=== PATIENT | male | born 1965 | race Caucasian/White ===

== ENCOUNTER 2016-11-30 18:33 | Inpatient (IN) | payer OTHER, MEDICARE ==
[~2016-11-30] VITALS: Ht 162.6 cm; Wt 97.5 kg
[~2016-11-30 18:33] MED LIST: AMOXIL 875 MG875 MG PO; BACTRIM DS 8001 TAB PO; KEFLEX 250MG C250 MG PO; KEFLEX250 MG PO; PROPRANOLOL HCL40 M1 PO; TOPAMAX100 M1 PO; TOPAMAX200 M1 PO; TOPIRAMATE100 MG PO; TYLENOL TAB 32325 MG PO; [UNRECOGNIZED DRUG - CODE] TOP
--- NOTE | 2016-11-30 19:27 | NUR ---
PT TO ED C/O SHARP LLQ PAIN. PAIN STARTED IN BACK THIS AM AND THEN MOVED TO LLQ. HAS BEEN GETTING WORSE THROUGHOUT THE DAY. +N/V. LAST BM WAS A COUPLE OF DAYS AGO "I HAVEN'T BEEN ABLE TO GO" FEELS BLOATED. TEMP 101.1 IN TRIAGE
[2016-11-30 19:50] LABS: ABSOLUTE BASOPHIL COUNT 0 /CUMM (0.0-0.2); ABSOLUTE EOSINOPHIL COUNT 0 /CUMM (0.0-0.7); ABSOLUTE GRANULOCYTE CT 12.4 /CUMM (1.4-6.5); ABSOLUTE LYMPH COUNT 1.4 /CUMM (1.2-3.4); ABSOLUTE MONOCYTE COUNT 0.9 /CUMM (0.10-0.60); BASOPHIL % 0.2 % (0.0-2.0); EOSINOPHIL % 0 % (0-5); HEMATOCRIT 48.8 % (42-52); MEAN CORPUSCULAR HGB 29.5 PG (27.0-31.0); MEAN CORPUSCULAR HGB CONC 33.4 G/DL (33.0-37.0); MEAN CORPUSCULAR VOLUME 88.5 FL (80.0-94.0); MEAN PLATELET VOLUME 9.1 FL (7.4-10.4); PLATELET COUNT 217 /CUMM (130-400); RBC DISTRIBUTION WIDTH 13.8 % (11.5-14.5); RED BLOOD CELL CT 5.52 /CUMM (4.70-6.10); WHITE BLOOD CELL COUNT 14.7 /CUMM (4.8-10.8)
--- NOTE | 2016-11-30 19:50 | NUR ---
LAB DRAWN AND SENT, LAV,SST,BLUE TOP
[2016-11-30 19:51] LABS: GRANULOCYTE % 84.2 % (42.2-75.2)
--- NOTE | 2016-11-30 20:21 | ED GI/GU/ABDOMINAL COMPLAINT ---
History of Present Illness General Chief Complaint: Abdominal Pain/Flank Pain Stated Complaint: ABD PAIN, VOMITING SINCE THIS AM PER PT Source: patient, family Exam Limitations: no limitations Allergies Coded Allergies: No Known Allergies (11/30/16) Reconcile Medications Oxybutynin Chloride (Oxybutynin Chloride ER) 15 MG TAB.ER.24 1 TAB PO DAILY OVERACTIVE BLADDER (Reported) Propranolol HCl 40 MG TABLET 1 TAB PO DAILY MIGRAINES (Reported) Rivaroxaban (Xarelto) 20 MG TABLET 1 TAB PO DAILY BLOOD CLOT (Reported) with food Topiramate (Topamax) 200 MG TABLET 1 TAB PO QPM SEIZURES (Reported) Topiramate (Topamax) 100 MG TABLET 1 TAB PO DAILY SEIZURES (Reported) Triage Note: PT TO ED C/O SHARP LLQ PAIN. PAIN STARTED IN BACK THIS AM AND THEN MOVED TO LLQ. HAS BEEN GETTING WORSE THROUGHOUT THE DAY. +N/V. LAST BM WAS A COUPLE OF DAYS AGO "I HAVEN'T BEEN ABLE TO GO" FEELS BLOATED. TEMP 101.1 IN TRIAGE Triage Nurses Notes Reviewed? yes HPI: 51-year-old male with left lower quadrant and left flank pain and left-sided low back pain that started this morning, sharp and severe getting worse associated with chills and fever decreased appetite. Mild intermittent nausea. No vomiting. Patient feels totally needs to have a bowel movement but cannot. No history of same. No urinary symptoms of frequency urgency or burning. No history of kidney stones. (ADEOLA GUNDERSON,KATHY) Vital Signs & Intake/Output Vital Signs & Intake/Output Vital Signs Date Time Temp Pulse Resp B/P Pulse O2 O2 Flow FiO2 Ox Delivery Rate 12/01 2255 97.4 98 18 143/93 96 Room Air 12/01 2026 Room Air Room Air 12/01 1348 98.6 85 18 128/90 96 Room Air 12/01 0825 99.6 80 20 146/86 98 Room Air ED Intake and Output 12/02 0000 12/01 1200 Intake Total 2190 300 Output Total 1100 600 Balance 1090 -300 Intake, IV 1300 300 Intake, Oral 890 Output, Urine 1100 600 Patient 215 lb Weight Past History Travel History Traveled to [place] past 21 day No Medical History Any Pertinent Medical History? 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 No (KATHY CONNOLLY) Review of Systems Review of Systems Constitutional: Reports: see HPI. EENTM: Reports: no symptoms. Respiratory: Reports: no symptoms. Cardiovascular: Reports: no symptoms. GI: Reports: see HPI. Genitourinary: Reports: no symptoms. Musculoskeletal: Reports: no symptoms. Skin: Reports: no symptoms. Neurological/Psychological: Reports: no symptoms. Hematologic/Endocrine: Reports: no symptoms. Immunologic/Allergic: Reports: no symptoms. All Other Systems: Reviewed and Negative (KATHY CONNOLLY) Physical Exam Physical Exam Respiratory: normal breath sounds, chest non-tender, no respiratory distress Cardiovascular: regular rate/rhythm Gastrointestinal: normal bowel sounds, soft, TENDERNESS IN LEFT LOWER QUADRANT MODERATE TO SEVERE Comments: Well-developed well-nourished no apparent distress. HEENT: Atraumatic, Neck: Supple, no lymphadenopathy Back: Nontender, no CVA tenderness Respiratory: No respiratory distress Extremities: No edema, full range of motion Neuro: Alert and oriented x3 Psych: Mood affect normal, normal memory normal judgment. Skin: Warm and dry, no rash on exposed skin (KATHY CONNOLLY) Core Measures ACS in differential dx? No Severe Sepsis Present: No Septic Shock Present: No (ABDIFATAH ZURITA) Progress Initial ED EKG: none Hand-Off Endorsed To: ABDIFATAH ZURITA Endorsed Time: 2250 Pending: CT Comments: tx with toradol 30mg iv. ivf. will ct abd/pelvis, eval for diverticulitis. (KATHY CONNOLLY) Differential Diagnosis: appendicitis, cholecystitis, diverticulitis, testicular torsion, ureterolithiasis, urinary retention, urethritis, UTI/pyelo Plan of Care: Orders Procedure Date/time Status PARTIAL THROMBOPLASTIN TIME 04/01 1030 Active CBC WITHOUT DIFFERENTIAL 12/02 0600 Active BASIC ELECTROLYTES PLUS BUN&CR 12/02 06 Active Heparin Drip- AFIB/FLUTTER/PE/ 12/02 0352 Active PARTIAL THROMBOPLASTIN TIME 12/02 0230 Complete Regular Diet 12/01 L Active RT: Evaluation 12/01 2025 Active Weight 12/01 1947 Complete MISSING MEDICATION FORM 12/01 1411 Active Seizure Precautions 12/01 1356 Active Precautions 12/01 1356 Active Vital Signs 12/01 1347 Active Teach/Educate 12/01 1347 Active Pain Treatment and Response 12/01 1347 Active Nutritional Intake, Monitor 12/01 1347 Active Isolation 12/01 134 Active Intake & Output 12/01 134 Active Patient Care Conference 12/01 1347 Active Activity/Ambulation 12/01 1347 Active PATHOLOGY SPECIMEN 12/01 0953 Complete Pathway - chart 12/01 0837 Active THERAPIST ORDERS 12/01 UNK Complete Misc Message 12/01 UNK Active Change service to 12/01 UNK Active Lab Add-on Test 12/01 UNK Active PHARMACY COMMUNICATION FORM 12/01 UNK Active MISSING MEDICATION FORM 12/01 UNK Active CULTURE,URINE 11/30 2319 Active Current Medications Sig/Carolyne Start time Last Medication Dose Stop Time Status Admin Heparin Sodium 5,000 UNIT BOLUS ONE 12/02 0330 CAN (Porcine) 12/02 0700 (Heparin Bolus) Heparin Sodium 25,000 UNIT Q24H 12/01 1330 CAN (Porcine) (Heparin) Sodium Chloride 500 ML Propranolol HCl 40 MG DAILY 12/01 1000 AC (Inderal 40 MG Tablet) Topiramate 100 MG DAILY 12/01 1000 AC (Topamax) Acetaminophen 650 MG Q6P PRN 12/01 0845 AC (Tylenol) Morphine Sulfate 2 MG Q4P PRN 12/01 0845 AC (Morphine) Laboratory Tests 12/02/16 0630: Sodium Pending, Potassium Pending, Chloride Pending, Carbon Dioxide Pending, Anion Gap Pending, BUN Pending, Creatinine Pending, BUN/Creatinine Ratio Pending , CBC w Diff Pending, WBC Pending, RBC Pending, Hgb Pending, Hct Pending, MCV Pending, MCH Pending, RDW Pending, Plt Count Pending, MPV Pending, PUBS MCHC Pending 12/02/16 0600: APTT Cancelled 12/02/16 0245: APTT 46 H 12/01/16 2040: Lactic Acid 2.0 12/01/16 1509: Ref Lab Test Result Pending Microbiology 12/01 1850 URINE ROUT: Urine Culture - RECD Diagnostic Imaging: Viewed by Me: CT Scan. Discussed w/RAD: CT Scan. Radiology Impression: SERVICE DATE: 11/30/16 EXAM TYPE: CAT - CT ABD & PELVIS W IV CONTRAST EXAMINATION: CT ABDOMEN AND PELVIS WITH CONTRAST CLINICAL INFORMATION: Left lower quadrant pain. Fever. COMPARISON: None. TECHNIQUE: Contiguous axial thin section helical images of the abdomen and pelvis were performed following the administration of 95 mL of intravenous Optiray 320. The data set was reformatted in the coronal and sagittal planes and reviewed on an independent workstation. DLP: 703 mGy-cm. FINDINGS: There is mild dependent bibasilar atelectasis. The visualized lung bases are otherwise clear. The visualized portions of the heart are unremarkable. There is a small hiatal hernia. The liver is of normal size and attenuation without intrahepatic biliary ductal dilation. There are a few subcentimeter low-attenuation lesions within the liver. These are too small to fully characterize. There are 2 small calculi within the gallbladder lumen. There is no wall thickening or discernible pericholecystic fluid. The spleen, pancreas, adrenal glands are unremarkable. There is a catheter within the abdomen and entering through the right anterior abdomen. No discontinuity is identified along the course of the catheter. A normal right kidney is identified. There is equivocal delay of the nephrogram on the left. There is left perinephric and proximal periureteral stranding. There is left grade 2 hydroureteronephrosis secondary to an obstructive distal left ureteral calculus measuring 4 mm. In addition, there is a 1 mm calculus at the left UVJ. There is no abdominal free fluid. There is neither mesenteric nor retroperitoneal lymphadenopathy. There is sigmoid diverticulosis without evidence of diverticulitis. Otherwise, unremarkable unopacified loops of small and large bowel are identified. In normal appendix is identified. There is no pelvic free fluid. The urinary bladder is unremarkable. There is neither pelvic nor inguinal lymphadenopathy. Bone windows: Neither concerning sclerotic nor lytic bone lesions are identified. There is an enostosis within the right iliac bone. There are bilateral L5 pars defects. There is no significant spondylolisthesis. IMPRESSION: Obstructive 4 mm distal left ureteral calculus with resultant grade 2 hydroureteronephrosis with left perinephric stranding. Diverticulosis without evidence of diverticulitis. 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 Small hiatal hernia. DICTATED BY: ZEN MYLES MD DATE/TIME DICTATED:11/30/162240 (ABDIFATAH ZURITA) Departure Departure Condition: Stable Referrals: RAIZA MANNING,EMMA Nails (PCP/Family) Departure Forms: Customer Survey General Discharge Information (KATHY CONNOLLY) Departure Disposition: STILL A PATIENT Clinical Impression Primary Impression: Pyelonephritis Secondary Impressions: Hydronephrosis with obstructing calculus Admission Note Spoke With: JEFF KISER MD Documentation of Exam: Documentation of any treatments & extenuating circumstances including Concerns Regarding Discharge (functional status, medication knowledge or non-compliance, living conditions, etc.) that warrant an admission rather than observation: Patient will require IV fluids. IV antibiotics. Patient will require a stent tomorrow. Patient is high risk. Patient would do poorly as an outpatient. Patient could potentially become unstable at home. (ABDIFATAH ZURITA) PA/SOLE LEVELING MACHINE OPERATOR Co-Sign Statement Statement: ED Attending supervision documentation- x I saw and evaluated the patient. I have also reviewed all the pertinent lab results and diagnostic results. I agree with the findings and the plan of care as documented in the PA's/SOLE LEVELING MACHINE OPERATOR's documentation. [] I have reviewed the ED Record and agree with the PA's/SOLE LEVELING MACHINE OPERATOR's documentation. [] Additions or exceptions (if any) to the PAs/SOLE LEVELING MACHINE OPERATOR's note and plan are summarized below: [] (BAIRON MANNING,ELTON) Primary Impression: Pyelonephritis Secondary Impressions: Hydronephrosis with obstructing calculus Admission Note Spoke With: JEFF KISER MD Documentation of Exam: Documentation of any treatments & extenuating circumstances including Concerns Regarding Discharge (functional status, medication knowledge or non-compliance, living conditions, etc.) that warrant an admission rather than observation: Patient will require IV fluids. IV antibiotics. Patient will require a stent tomorrow. Patient is high risk. Patient would do poorly as an outpatient. Patient could potentially become unstable at home. (ABDIFATAH ZURITA)
--- NOTE | 2016-11-30 21:49 | NUR ---
VERY POOR VENOUS ACCESS. MULTIPLE ATTEMPTS BY MULTIPLE NURSES TO ESTABLISH. PT MEDICATED WITH TORADOL IM PER [facility]
--- NOTE | 2016-11-30 22:51 | CT SCAN REPORT ---
EXAMINATION: CT ABDOMEN AND PELVIS WITH CONTRAST CLINICAL INFORMATION: Left lower quadrant pain. Fever. COMPARISON: None. TECHNIQUE: Contiguous axial thin section helical images of the abdomen and pelvis were performed following the administration of 95 mL of intravenous Optiray 320. The data set was reformatted in the coronal and sagittal planes and reviewed on an independent workstation. DLP: 703 mGy-cm. FINDINGS: There is mild dependent bibasilar atelectasis. The visualized lung bases are otherwise clear. The visualized portions of the heart are unremarkable. There is a small hiatal hernia. The liver is of normal size and attenuation without intrahepatic biliary ductal dilation. There are a few subcentimeter low-attenuation lesions within the liver. These are too small to fully characterize. There are 2 small calculi within the gallbladder lumen. There is no wall thickening or discernible pericholecystic fluid. The spleen, pancreas, adrenal glands are unremarkable. There is a catheter within the abdomen and entering through the right anterior abdomen. No discontinuity is identified along the course of the catheter. A normal right kidney is identified. There is equivocal delay of the nephrogram on the left. There is left perinephric and proximal periureteral stranding. There is left grade 2 hydroureteronephrosis secondary to an obstructive distal left ureteral calculus measuring 4 mm. In addition, there is a 1 mm calculus at the left UVJ. There is no abdominal free fluid. There is neither mesenteric nor retroperitoneal lymphadenopathy. There is sigmoid diverticulosis without evidence of diverticulitis. Otherwise, unremarkable unopacified loops of small and large bowel are identified. In normal appendix is identified. There is no pelvic free fluid. The urinary bladder is unremarkable. There is neither pelvic nor inguinal lymphadenopathy. Bone windows: Neither concerning sclerotic nor lytic bone lesions are identified. There is an enostosis within the right iliac bone. There are bilateral L5 pars defects. There is no significant spondylolisthesis. IMPRESSION: Obstructive 4 mm distal left ureteral calculus with resultant grade 2 hydroureteronephrosis with left perinephric stranding. Diverticulosis without evidence of diverticulitis. 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 Small hiatal hernia.
--- NOTE | 2016-11-30 23:00 | NUR ---
MEDICATED WITH MORPHINE PER [facility] AND INFORMED AGAIN OF NEED FOR URINE SAMPLE WHEN ABLE TO PROVIDE. NS IVF BOLUS CONTINUES TO RUN WIDE OPEN
--- NOTE | 2016-11-30 23:22 | NUR ---
PT NORMOTENSIVE, HR 98-104 ON CM AND TEMP 99.1 AT THIS TIME. REPORTS IMPROVEMENT OF SYMPTOMS WITH MORPHINE. 100ML CONCENTRATED YELLOW URINE OBTAINED AND TRIO SENT TO LAB. NEPTALI MCCRACKEN TO ROOM TO DISCUSS TEST RESULTS
--- NOTE | 2016-12-01 01:01 | NUR ---
ABDIFATAH IZQUIERDO W/DR HCRISTIAN. PT TO BE ADMITTED.
--- NOTE | 2016-12-01 01:30 | NUR ---
PLACED ON HOSP BED AT THIS TIME--NO AVAILABLE GM BEDS, SO PT WILL REMAIN HERE IN ERR.
--- NOTE | 2016-12-01 02:11 | NUR ---
HOUSE STAFF AT BEDSIDE
[2016-12-01] MEDS ORDERED: XARELTO20 M2 PO (02:12)
[2016-12-01] MEDS ORDERED: OXYBUTYNIN CHLO15 M1 PO (02:15)
--- NOTE | 2016-12-01 03:19 | History & Physical ---
KELL WOOTEN 12/01/16 0318: General Information and HPI MD Statement: I have seen and personally examined RUDY KWONG and documented this H&P. The patient is a 51 year old M who presented with a patient stated chief complaint of fever, chills, nausea, vomiting and low back pain. Source of Information: patient Exam Limitations: no limitations History of Present Illness: This is a 51-year-old male with past medical history significant for migrainous headache, seizures, hydrocephalus evp operations shunt, cellulitis left lower extremity, blood clots on xaralto, overactive bladder on oxybutynin presented to the emergency department this evening with chief complaint of fever, chills, nausea, vomiting and low back pain for 1 day. Patient does report sudden onset of fever associated with chills. He has low back pain, 10 out of 10 pain, sharp and achy, radiating to left flank, associated with nausea and vomiting. He does report 4 episodes of nonbloody vomitus this afternoon. He denies any frequency, urgency. However he reports burning sensation on urination. Off note patient has history of overactive bladder who takes oxybutynin. He denies any blood in urine. He denies any history of kidney stones in the past. Patient also reports abdominal discomfort and pain in left lower part of the abdomen, abdominal distention. He also reports loss of appetite for a while. Also reports constipation. Denies any blood in stool. Denies any alternate bowel habits. Denies any sick contacts or travel history. Patient follows Dr. Saavedra the vascular surgeon for blood clots and he takes it xaralto 20 mg daily. He denies any chest pain, racing of heart, shortness of breath, cough, lower extremity swelling or pain, headache, weakness, sensory changes, numbness or tingling sensation, gait or vision changes. 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 self Services at Home: None Smoking Status: Never Smoked ETOH Use: denies use Illicit Drug Use: denies illicit drug use Functional Ability ADLs Independent: dressing, eating, toileting, bathing. Ambulation: cane IADLs Independent: shopping, housework, finances, food prep, telephone, medication admin. Needs Assist: transportation. Review of Systems Review of Systems Constitutional: Reports: chills, diaphoresis, fever. Denies: malaise, weakness, unexplained weight loss. EENTM: Denies: no symptoms. Cardiovascular: Denies: chest pain, edema, orthopena, palpitations, peripheral edema, syncope. Respiratory: Denies: cough, hemoptysis, orthopnea, short of breath, sputum production, stridor, wheezing. GI: Reports: abdominal pain, bloating, constipation, distention, nausea, vomiting. Denies: bloody stool, steatorrhea. Genitourinary: Reports: dysuria, pain. Denies: discharge, frequency, hematuria, nocturia, urgency. Musculoskeletal: Denies: back pain, joint pain. Skin: Denies: no symptoms. Neurological/Psychological: Denies: anxiety, ataxia, confusion, depressed, emotional problems, headache, numbness, tingling, tremors. Exam & Diagnostic Data Last 24 Hrs of Vital Signs/I&O Vital Signs Date Time Temp Pulse Resp B/P Pulse O2 O2 Flow FiO2 Ox Delivery Rate 11/30 2320 99.1 98 18 150/79 97 Room Air 11/30 2249 97 Room Air 11/30 2106 100.3 90 18 149/88 96 Room Air 11/30 1923 101.1 103 18 149/84 96 Room Air Intake & Output 12/01 0800 12/01 0000 11/30 1600 Intake Total 1000 Output Total 200 100 Balance -200 900 Intake, IV 1000 Output, Urine 200 100 Patient 104.326 kg Weight Physical Exam General Appearance Alert, Oriented X3, Cooperative, No Acute Distress Skin No Rashes, No Breakdown HEENT Atraumatic, PERRLA, EOMI, Mucous Membr. moist/pink Neck Supple, No JVD, No thryomegaly Lymphatic Axillary nl, Cervical nl Cardiovascular Regular Rate, Normal S1, Normal S2, No Murmurs Lungs Clear to Auscultation, Normal Air Movement Abdomen Normal Bowel Sounds, Soft, No Hepatospenomegaly, No Masses, left flank tenderness Neurological Normal Speech, Strength at 5/5 X4 Ext, Normal Tone, Sensation Intact, Cranial Nerves 3-12 NL, Reflexes 2+ Extremities No Clubbing, No Cyanosis, No Edema, Normal Pulses, No Tenderness/ Swelling Vascular Normal Pulses, Pulses Symmetrical Last 24 Hrs of Labs/August: Laboratory Tests 11/30/162354: Lactic Acid 0.9 11/30/169: Urinalysis LIGHT H, Urine Color YEL, Urine Clarity CLEAR, Urine pH 6.0, Ur Specific [place] 1.010, Urine Protein NEG, Urine Ketones TRACE H, Urine Nitrite NEG, Urine Bilirubin NEG, Urine Urobilinogen 0.2, Ur Leukocyte Esterase NEG, Ur Microscopic SEDIMENT EXAMINED, Urine RBC 3-5, Urine WBC RARE, Ur Epithelial Cells RARE, Urine Mucus FEW, Urine Hemoglobin TRACE-INTACT H, Urine Glucose NEG 11/30/16 1944: Anion Gap 13, Estimated GFR 59 L, BUN/Creatinine Ratio 17.7, Glucose 144 H, Calcium 9.5, Total Bilirubin 0.7, AST 24, ALT 39, Alkaline Phosphatase 86, Total Protein 7.6, Albumin 4.5, Globulin 3.1, Albumin/Globulin Ratio 1.5, Amylase 32, Lipase 52, CBC w Diff NO MAN DIFF REQ, RBC 5.52, MCV 88.5, MCH 29.5, RDW 13.8, MPV 9.1, Gran % 84.2 H, Lymphocytes % 9.5 L, Monocytes % 6.1, Eosinophils % 0, Basophils % 0.2, Absolute Granulocytes 12.4 H, Absolute Lymphocytes 1.4, Absolute Monocytes 0.9 H, Absolute Eosinophils 0, Absolute Basophils 0, PUBS MCHC 33.4 Microbiology 12/01 0128 URINE ROUT: Urine Culture - ORD 12/01 0000 BLOOD: Blood Culture - RECD 11/30 2354 BLOOD: Blood Culture - RECD Assessment/Plan Assessment: This is a 51-year-old male with past medical history significant for migrainous headache, seizures, hydrocephalus evp operations shunt, cellulitis left lower extremity, blood clots on xaralto, overactive bladder on oxybutynin presented to the emergency department this evening with chief complaint of fever, chills, nausea, vomiting and low back pain for 1 day. Vitals on admission febrile 101.1, tachycardic 103, respiratory rate 18, blood pressure 149/88, saturating at 96% on room air. On examination patient has left CVA tenderness. Labs leukocytosis with neutrophilia, H&H normal, platelet count normal. Urine analysis-normal. Creatinine 1.3. Lactic acid 0.9 CAT scan abdomen- Obstructive 4 mm distal left ureteral calculus with resultant grade hydroureteronephrosis with left perinephric stranding. Problem list 1. Acute pyelonephritis 2. Sepsis of urologic origin 3. Acute kidney injury 4. Hydronephrosis with obstructive calculus 5. Migrainous headache 6. Seizures 7. Lower extremity blood clots 8. Overactive bladder Acute pyelonephritis Patient presented with sudden onset fever, chills, low back pain and left flank pain, associated with nausea and vomiting, burning sensation on urination. No past history significant for stones. Laboratory findings suggestive of leukocytosis with neutrophilia, urine analysis was normal, creatinine raised to 1.3. CAT scan suggestive of obstructive 4 mm left ureteral calculus and grade 2 hydroureteral nephrosis. * Patient admitted to general medical floor for further management of acute pyelonephritis and nephrolithiasis. * Monitor vitals every shift. * Maintain oxygen saturation above 90%. * Monitor closely for any worsening fever, tachycardia, hypotension, worsening pain. * IV fluids, received 2 boluses of normal saline packs in the emergency room. * Pain medication if necessary * zofran if necessary for vomiting * IV ceftriaxone * Urine culture and sensitivities * Blood culture * Urology consult * Monitor CBC in the morning sepsis of urologic origin Patient presented with fever 101.1, tachycardia and found to be having leukocytosis. Source of infection-urine. CAT scan abdomen suggestive of left ureteral stone. * Monitor vitals closely * Maintain oxygen saturation above 90% * Monitor for fever, hypotension, tachycardia. * Maintenance IV fluids Hydronephrosis with obstructive calculus CAT scan abdomen suggestive of left-sided ureteral calculus and grade 2 hydroureteronephrosis. * Urologist on board * Possible stent placement tomorrow * Nothing by mouth Acute kidney injury Creatinine 1.3 on admission Getting IV fluids We'll monitor kidney function tests in the morning Migrainous headache Patient takes propranolol 40 daily Continue home medication Seizures Patient takes topiramate 100 mg daily and 200 mg at bedtime Continue home medication Hydrocephalus Status post NETWORK CONTRACT MANAGER shunt Lower extremity blood clot Patient takes xeralto 20mg daily xaralto on hold for now for anticipated procedure Stool guaic Was negative for blood Started on heparin drip Denies any calf tenderness, pain or swelling lower extremities Denies any chest pain Full code DVT prophylaxis-heparin drip Mild to moderate pain pathway Nothing by mouth-anticipated urologic procedure . As Ranked By This Provider Problem List: 1. Hydronephrosis with obstructing calculus 2. Pyelonephritis 3. DVT prophylaxis 4. Full code status 5. Hydrocephalus 6. Seizures 7. Cellulitis Core Measures/Miscellaneous Acute Coronary Syndrome ACS Diagnosis: No Cerebrovascular Accident CVA/TIA Diagnosis: No Congestive Heart Failure CHF Diagnosis: No Venous Thromboembolism VTE Risk Factors: Age > 40, Previous VTE No [facility] VTE prophylaxis d/t: No contraindications No VTE Pharm Prophylaxis d/t: No contraindications VTE Diagnosis: No VTE Type: NONE VTE Confirmed by (Test): NONE Severe Sepsis Severe Sepsis Present: No Septic Shock Septic Shock Present: No Miscellaneous Documentation Attending Case Discussed With: JEFF KISER MD Primary Care Physician: EMMA EASTMAN MD Patient sees these Specialists vascular surgeon Level of Patient Care: General Medicine ALYCHRIS 12/01/16 0322: General Information and HPI Allergies/Medications Home Med list Oxybutynin Chloride (Oxybutynin Chloride ER) 15 MG TAB.ER.24 1 TAB PO DAILY OVERACTIVE BLADDER (Reported) Propranolol HCl 40 MG TABLET 1 TAB PO DAILY MIGRAINES (Reported) Rivaroxaban (Xarelto) 20 MG TABLET 1 TAB PO DAILY BLOOD CLOT (Reported) with food Topiramate (Topamax) 200 MG TABLET 1 TAB PO QPM SEIZURES (Reported) Topiramate (Topamax) 100 MG TABLET 1 TAB PO DAILY SEIZURES (Reported) Resident Review Statement Resident Statement: examined this patient, discussed with technical internship, agreed with technical internship, reviewed EMR data (avail), reviewed images Other Findings: This is a 51-year-old gentleman with past medical history significant for hydrocephalus status post NETWORK CONTRACT MANAGER shunt, seizure, migraine, overactive bladder, DVT on Xarelto who presents to the ED with low back pain, fever, nausea for 1 day. According to the patient, he has sharp left lower quadrant abdominal pain along with back pain since this morning. He also had fever chills along with nausea. He also reports dysuria without any frequency or hematuria. Please see above for more details. Vital signs on admission: Temperature 101.5, pulse rate 103, respiratory rate 18 , blood pressure 149/84, oxygen saturation 96% on room air. Pertinent physical exam at the time of admission: AAO 3, NAD. HEENT: H NCAT, PERRLA, EOMI, moist mucous membrane, normal pharynx. Neck: Supple, no JVD, no LAD. CV: RRR, no murmur. Lungs: CTA BL. Abdomen: Normal bowel sounds, soft, distended, NT. CVA tenderness present bilaterally. Extremities: No edema, normal pulse, no calf tenderness. Neurology: Normal speech, cranial nerves III- 12 intact, normal reflexes, normal range of motion and strength. Sensation intact. Skin: Warm with normal capillary refill. Pertinent lab data on admission: Leukocytosis to 14.7 with granulocytosis. Creatinine 1.3, GFR 59, glucose 144, lactic acid 0.9. UA positive for trace hematuria. Imaging on admission: CT abdomen/pelvis:Obstructive 4 mm distal left ureteral calculus with resultant grade 2 hydroureteronephrosis with left perinephric stranding.Diverticulosis without evidence of diverticulitis. 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 Small hiatal hernia. Problem list/plan: #Sepsis of urological origin: Likely secondary to complicated UTI with pyelonephritis, obstructing stone with hydronephrosis. Will obtain blood culture 2 and urine culture. Patient has received 2 L of bolus normal saline in the ED will start the patient on maintenance fluids. Lactic acid negative. Will start the patient on IV ceftriaxone. Urology consult in the morning. Will keep the patient nothing by mouth in case he needs any procedure in the morning. #History of DVT on Xarelto: Patient takes his Xarelto daily around 6 AM. Given the patient may require urological procedure, will discontinue Xarelto and start the patient on IV heparin. Will obtain lower extremity Doppler. 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 #DVT prophylaxis: Being addressed by IV heparin. #Patient is full code. JEFF KISER 12/01/16 0445: Attending MD Review Statement Attending Statement Attending MD Statement: examined this patient, discuss w/resident/PA/SPINDLE MAKER, agreed w/resident/PA/SPINDLE MAKER, reviewed EMR data (avail), reviewed images, amended to note Attending Assessment/Plan: CC: Sharp left lower quadrant pain PMH: Hydrocephalus S/P NETWORK CONTRACT MANAGER shunt, seizure, migraine, DVT diagnosed one and half year back on Xeralto Patient came to ER with sharp left lower quadrant pain, back pain, which started as low back this morning, then radiated, sharp, severe, 10/10, associated with fever, chills, nausea and vomiting. He observed blood in urine but denies any frequency and urgency in urination patient has overactive bladder. Vitals: T max 101.3, pulse 103 at presentation, RR 18, blood pressure 149/84, saturating well on room air. On exam: A O 3, cooperative, no acute distress, neck supple, , warm to touch, no JVD, no lymphadenopathy, mucosa moist, no focal neurological deficit, no dependent edema, no obvious skin rashes or inflammation CVS: S1-S2, RRR. RS: Clear to auscultate bilaterally. Abdomen: Soft, NT, ND, bowel sounds present. Peripheral pulses perfusion normal. Labs: WBC 14.7, neutrophils 84%, bicarbonate 20, BUN 23, creatinine 1.3, glucose 144, lactate 0.9, LFT unremarkable. UA trace ketones only. CT abdomen pelvis with IV contrast: 1. Obstructive 4 mm distal left ureteral calculus with resultant grade 2 hydroureteronephrosis with left perinephric stranding. 2. Diverticulosis without evidence of diverticulitis. 3. 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 4. Small hiatal hernia. A and P #1 sepsis secondary to complicated UTI with pyelonephritis and hydronephrosis with obstructing stone. Urine culture, blood culture, aggressive hydration with 2 L NS bolus followed by 150 mL per hour, lactate 0.9, continue ceftriaxone IV. Urology consult in a.m. nothing by mouth until seen by urologist. #2 history of DVT patient currently on , last tube dose on 11/30/2016 at around 6 AM. Patient is supposed to be on prolonged treatment, given that patient will and require urological procedure DC Xalto, start heparin 5 AM, obtain bilateral lower extremity DVT Doppler. Heparin may be transiently stopped for urological procedure then according to procedure can be resumed xeralto or heparin. #3 history of seizure, hydrocephalus, migraine: Continue propranolol and Topamax
--- NOTE | 2016-12-01 04:00 | NUR ---
SLEEPING SHORT PERIODS.
--- NOTE | 2016-12-01 04:47 | Admission Certification ---
Admission Certification Certification Statement - As attending physician, I certify that at the time of - admission, based on clinical presentation, severity of - symptoms, need for further diagnostic testing and - therapeutic interventions, and risk of adverse outcomes - without in-hospital treatment, in my clinical assessment, - this patient requires an acute hospital stay for a minimum - of two nights or longer. I have also considered psychsocial - factors such as support system, advanced age, financial - issues, cognitive issues, and failed out-patient treatments, - past re-admission history, safety of patient, and lack of - compliance as applicable. Specific rationale supporting this admission is: Sepsis with complicated UTI, hydronephrosis with obstructing stone
--- NOTE | 2016-12-01 05:00 | NUR ---
HEPARIN DRIP UP VIA PUMP AT MAX DOSE OF 26ML/HR.
--- NOTE | 2016-12-01 07:02 | NUR ---
OOB TO BR W/ASSISTANCE.
[2016-12-01 07:07] LABS: ABSOLUTE BASOPHIL COUNT 0 /CUMM (0.0-0.2); ABSOLUTE EOSINOPHIL COUNT 0 /CUMM (0.0-0.7); ABSOLUTE GRANULOCYTE CT 7.2 /CUMM (1.4-6.5); ABSOLUTE LYMPH COUNT 1.8 /CUMM (1.2-3.4); ABSOLUTE MONOCYTE COUNT 1.3 /CUMM (0.10-0.60); BASOPHIL % 0.2 % (0.0-2.0); EOSINOPHIL % 0.3 % (0-5); GRANULOCYTE % 69.6 % (42.2-75.2); MEAN CORPUSCULAR HGB 29.5 PG (27.0-31.0); MEAN CORPUSCULAR HGB CONC 33.5 G/DL (33.0-37.0); MEAN CORPUSCULAR VOLUME 88.2 FL (80.0-94.0); MEAN PLATELET VOLUME 9.2 FL (7.4-10.4); PLATELET COUNT 171 /CUMM (130-400); RBC DISTRIBUTION WIDTH 14.3 % (11.5-14.5); RED BLOOD CELL CT 4.79 /CUMM (4.70-6.10); WHITE BLOOD CELL COUNT 10.4 /CUMM (4.8-10.8)
[2016-12-01 07:11] LABS: HEMATOCRIT 42.3 % (42-52)
--- NOTE | 2016-12-01 07:15 | NUR ---
RECEIVED REPORT ON PT AND NOTED RESTING ON STRETCHER AND DENIED ANY COMPLAINTS AT PRESENT. PT IS AWARE HE IS GOING TO OR AND NEEDS TO REMAIN NPO. PT ALSO HAS HEPARIN INFUSING AT 25.9.
--- NOTE | 2016-12-01 07:40 | NUR ---
U/S AT BEDSIDE WITH PT
--- NOTE | 2016-12-01 07:47 | NUR ---
SURGICAL PA CALLED TO INFORM PT WILL BE GOING TO OR EITHER BY 8AM OR 10AM
--- NOTE | 2016-12-01 08:07 | NUR ---
PAIGED SURGICAL NEPTALI TAYLOR TO CONFIRM WHEN TO STOP HEPARIN ON PT AND WAS INFORMED BY NEPTALI MIR THAT SHE IS IN THE OR AND THAT IT IS OK TO STOP THE HEPARIN NOW
--- NOTE | 2016-12-01 08:33 | Cons- Urology ---
General Information and HPI Consulting Request Date of Consult: 12/01/16 Requested By: JEAN-PAUL MANNING,ANDREI Peters Reason for Consult: left obstructing ureteral stone with imminent sepsis Source of Information: patient Exam Limitations: no limitations History of Present Illness: This is a 51-year-old male with past medical history significant for migraine headaches, seizures, hydrocephalus vp [employer] sales [place] shunt, cellulitis of the left lower extremity, blood clots on xeralto, overactive bladder on oxybutynin who presented to the ER with chief complaint of F/C/N/V and LBP for one day. He described the LBP as 10 out of 10 pain, sharp and achy, radiating to left flank, associated with nausea and vomiting. He does report 4 episodes of nonbloody vomitus yesterday afternoon. He also admits to LLQ pain with a loss of appetite and constipation. He denies any frequency, urgency. However he reports burning sensation on urination. He denies any blood in urine. He denies any history of kidney stones in the past. Allergies/Medications Allergies: Coded Allergies: No Known Allergies (11/30/16) Home Med List: Apixaban (Eliquis) 5 MG TABLET 1 TAB PO BID DVT Cephalexin (Keflex) 500 MG CAPSULE 1 CAP PO Q6 UTI Cephalexin (Keflex) 500 MG CAPSULE 1 CAP PO BID UTI Hydromorphone HCl (Dilaudid) 2 MG TABLET 1 TAB PO BIDP PRN PAIN Ondansetron HCl (Zofran) 4 MG TABLET 1 TAB PO Q6-8P PRN NAUSEA Oxybutynin Chloride (Oxybutynin Chloride ER) 15 MG TAB.ER.24 1 TAB PO DAILY OVERACTIVE BLADDER (Reported) Oxycodone HCl 5 MG TABLET 1 TAB PO Q6H PRN PAIN SCALE 7-10 (SEVERE) Propranolol HCl 40 MG TABLET 1 TAB PO DAILY MIGRAINES (Reported) Tamsulosin HCl (Flomax) 0.4 MG CAP.ER.24H 1 CAP PO DAILY KIDNEY STONE Topiramate (Topamax) 200 MG TABLET 1 TAB PO QPM SEIZURES (Reported) Topiramate (Topamax) 100 MG TABLET 1 TAB PO DAILY SEIZURES (Reported) Current Medications: Current Medications Sig/Carolyne Start time Last Medication Dose Route Stop Time Status Admin Ampicillin Sodium/ 0 .STK-MED ONE 03/30 2137 DC Sulbactam Sodium .ROUTE Ampicillin Sodium/ 3,000 MG ONCE ONE 11/30 2030 DC 11/30 Sulbactam Sodium IV 11/30 2058 2230 Sodium Chloride 100 ML Ceftriaxone Sodium 1,000 MG DAILY 12/01 1000 AC IV Heparin Sodium 25,000 UNIT Q24H 12/01 0730 DC (Porcine) IV Sodium Chloride 500 ML Heparin Sodium 25,000 UNIT Q24H 12/01 0500 AC 12/01 (Porcine) IV 0505 Sodium Chloride 500 ML Ketorolac 30 MG ONE ONE 11/30 214 DC 11/30 Tromethamine IM 11/30 2145 2150 Ketorolac 0 .STK-MED ONE 11/30 2136 DC Tromethamine .ROUTE Ketorolac 30 MG ONCE ONE 11/30 2029 CAN Tromethamine IV 11/30 2030 Morphine Sulfate 4 MG ONCE ONE 11/30 2300 DC 11/30 IV 11/30 2300 2304 Morphine Sulfate 0 .STK-MED ONE 11/30 2258 DC .ROUTE Propranolol HCl 40 MG DAILY 12/01 1000 CAN PO Propranolol HCl 40 MG DAILY 12/01 1000 AC PO Sodium Chloride 1,000 ML Q13H 12/01 0315 AC 12/01 IV 0404 Sodium Chloride 1,000 ML BOLUS ONE 11/30 2330 DC 12/01 IV 12/01 0029 0005 Sodium Chloride 1,000 ML BOLUS ONE 11/30 2029 DC 11/30 IV 11/30 2128 2230 Topiramate 100 MG QAM 12/01 1000 CAN PO Topiramate 100 MG DAILY 12/01 1000 AC PO Topiramate 200 MG AT BEDTIME 12/01 0400 AC 12/01 PO 0404 Past History Medical History Blood Transfusion Hx: No Neurological: migraine, seizure, 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 self Services at Home: None Primary Language: Bulgarian Smoking Status: Never Smoked ETOH Use: denies use Illicit Drug Use: denies illicit drug use Living Will? unknown Power of Playground Director/HCP? unknown Functional Ability ADLs Independent: dressing, eating, toileting, bathing. Ambulation: cane IADLs Independent: shopping, housework, finances, food prep, telephone, medication admin. Needs Assist: transportation. Employment History Retired? unknown Review of Systems Review of Systems Constitutional: Reports: chills, fever, malaise, weakness. EENTM: Reports: no symptoms. Cardiovascular: Reports: no symptoms. Respiratory: Reports: no symptoms. GI: Reports: constipation. Genitourinary: Reports: dysuria. Musculoskeletal: Reports: back pain. Skin: Reports: no symptoms. Neurological/Psychological: Reports: no symptoms. Hematologic/Endocrine: Reports: no symptoms. Immunologic/Allergic: Reports: no symptoms. Exam & Diagnostic Data Vital Signs and I&O Vital Signs Date Time Temp Pulse Resp B/P Pulse O2 O2 Flow FiO2 Ox Delivery Rate 12/01 824 99.6 80 20 146/86 98 Room Air 12/01 0542 98.6 95 18 156/95 98 11/30 2320 99.1 98 18 150/79 97 Room Air 11/30 2249 97 Room Air 11/30 2106 100.3 90 18 149/88 96 Room Air 11/30 1923 101.1 103 18 149/84 96 Room Air Intake & Output 12/01 1600 12/01 0800 12/01 0000 11/30 1600 11/30 0800 11/30 0000 Intake Total 300 1000 Output Total 600 100 Balance -300 900 Intake, IV 300 1000 Output, Urine 600 100 Patient 104.326 kg Weight Physical Exam General Appearance: well developed/nourished, alert, awake, anxious Head: atraumatic, normal appearance Eyes: Bilateral: normal appearance. Ears, Nose, Throat: normal ENT inspection Neck: normal inspection Respiratory: normal breath sounds, no respiratory distress Cardiovascular: regular rate/rhythm Gastrointestinal: soft, non-tender Rectal: deferred Back: CVA tenderness (L) Extremities: normal inspection Neurologic/Psych: awake, alert, oriented x 3 Cranial Nerves: normal hearing, normal speech Skin: intact, normal color, warm/dry Reproductive: Normal male genitalia Last 24 Hours of Labs: Laboratory Tests 12/01 11/30 0651 2355 Chemistry Sodium (137 - 145 mmol/L) 138 Potassium (3.5 - 5.1 mmol/L) 3.6 Chloride (98 - 107 mmol/L) 110 H Carbon Dioxide (22 - 30 mmol/L) 22 Anion Gap (5 - 16) 6 BUN (9 - 20 mg/dL) 23 H Creatinine (0.7 - 1.2 mg/dL) 1.4 H Estimated GFR (>60 ml/min) 54 L BUN/Creatinine Ratio (7 - 25 %) 16.4 Lactic Acid (0.7 - 2.1 mmol/L) 0.9 Hematology CBC w Diff NO MAN DIFF REQ WBC (4.8 - 10.8 /CUMM) 10.4 RBC (4.70 - 6.10 /CUMM) 4.79 Hgb (14.0 - 18.0 G/DL) 14.2 Hct (42 - 52 %) 42.3 MCV (80.0 - 94.0 FL) 88.2 MCH (27.0 - 31.0 PG) 29.5 RDW (11.5 - 14.5 %) 14.3 Plt Count (130 - 400 /CUMM) 171 MPV (7.4 - 10.4 FL) 9.2 Gran % (42.2 - 75.2 %) 69.6 Lymphocytes % (20.5 - 51.1 %) 17.7 L Monocytes % (1.7 - 9.3 %) 12.2 H Eosinophils % (0 - 5 %) 0.3 Basophils % (0.0 - 2.0 %) 0.2 Absolute Granulocytes (1.4 - 6.5 /CUMM) 7.2 H Absolute Lymphocytes (1.2 - 3.4 /CUMM) 1.8 Absolute Monocytes (0.10 - 0.60 /CUMM) 1.3 H Absolute Eosinophils (0.0 - 0.7 /CUMM) 0 Absolute Basophils (0.0 - 0.2 /CUMM) 0 PUBS MCHC (33.0 - 37.0 G/DL) 33.5 11/30 11/30 2319 1944 Chemistry Sodium (137 - 145 mmol/L) 137 Potassium (3.5 - 5.1 mmol/L) 4.0 Chloride (98 - 107 mmol/L) 103 Carbon Dioxide (22 - 30 mmol/L) 20 L Anion Gap (5 - 16) 13 BUN (9 - 20 mg/dL) 23 H Creatinine (0.7 - 1.2 mg/dL) 1.3 H Estimated GFR (>60 ml/min) 59 L BUN/Creatinine Ratio (7 - 25 %) 17.7 Glucose (65 - 99 mg/dL) 144 H Calcium (8.4 - 10.2 mg/dL) 9.5 Total Bilirubin (0.2 - 1.3 mg/dL) 0.7 AST (17 - 59 U/L) 24 ALT (21 - 72 U/L) 39 Alkaline Phosphatase (< 127 U/L) 86 Total Protein (6.3 - 8.2 g/dL) 7.6 Albumin (3.5 - 5.0 g/dL) 4.5 Globulin (1.9 - 4.2 gm/dL) 3.1 Albumin/Globulin Ratio (1.1 - 2.2 %) 1.5 Amylase (30 - 110 U/L) 32 Lipase (23 - 300 U/L) 52 Hematology CBC w Diff NO MAN DIFF REQ WBC (4.8 - 10.8 /CUMM) 14.7 H RBC (4.70 - 6.10 /CUMM) 5.52 Hgb (14.0 - 18.0 G/DL) 16.3 Hct (42 - 52 %) 48.8 MCV (80.0 - 94.0 FL) 88.5 MCH (27.0 - 31.0 PG) 29.5 RDW (11.5 - 14.5 %) 13.8 Plt Count (130 - 400 /CUMM) 217 MPV (7.4 - 10.4 FL) 9.1 Gran % (42.2 - 75.2 %) 84.2 H Lymphocytes % (20.5 - 51.1 %) 9.5 L Monocytes % (1.7 - 9.3 %) 6.1 Eosinophils % (0 - 5 %) 0 Basophils % (0.0 - 2.0 %) 0.2 Absolute Granulocytes (1.4 - 6.5 /CUMM) 12.4 H Absolute Lymphocytes (1.2 - 3.4 /CUMM) 1.4 Absolute Monocytes (0.10 - 0.60 /CUMM) 0.9 H Absolute Eosinophils (0.0 - 0.7 /CUMM) 0 Absolute Basophils (0.0 - 0.2 /CUMM) 0 PUBS MCHC (33.0 - 37.0 G/DL) 33.4 Urines Urinalysis LIGHT H Urine Color (YEL,AMB,STR) YEL Urine Clarity (CLEAR) CLEAR Urine pH (5.0 - 8.0) 6.0 Ur Specific [place] (1.001 - 1.035) 1.010 Urine Protein (NEG,<30 MG/DL) NEG Urine Ketones (NEG) TRACE H Urine Nitrite (NEG) NEG Urine Bilirubin (NEG) NEG Urine Urobilinogen (0.1 - 1.0 EU/dl) 0.2 Ur Leukocyte Esterase (NEG) NEG Ur Microscopic SEDIMENT EXAMINED Urine RBC (0 - 5 /HPF) 3-5 Urine WBC (0 - 2 /HPF) RARE Ur Epithelial Cells (NONE,FEW) RARE Urine Mucus (FEW,NONE) FEW Urine Hemoglobin (NEG) TRACE-INTACT H Urine Glucose (N MG/DL) NEG Imaging Results: CT scan with 4mm distal ureteral stone and 1mm UVJ stone with perinephric stranding. Assessment/Plan Assessment/Plan Pt has an obstructing ureteral stone. Pt to go to OR for ureteral stent and stone laser lithotripsy. Consult Acknowledgment - Thank you for your consult request.
--- NOTE | 2016-12-01 08:35 | ULTRASOUND REPORT ---
EXAMINATION: US TRIPLEX LOWER EXTREMITY, BILATERAL CLINICAL INFORMATION: This is a 51-year-old male with history of left lower extremity deep vein thrombosis. On anticoagulation with Xarelto. COMPARISON: Comparison is made to a left lower extremity venous duplex dated 02/24/2015 which was reported as normal. Comparison is made to a left lower extremity venous duplex dated 08/09/2013 which was also normal. TECHNIQUE: Color-flow triplex imaging with spectral analysis and compression Doppler were performed on the bilateral lower extremities. FINDINGS: Respiratory variation, normal compression and augmented flow are noted throughout the bilateral lower extremities. The visualized common femoral vein, superficial femoral vein, profunda femoral vein, popliteal vein and midcalf peroneal venous segments show no evidence of deep venous thrombosis. However, there is partially occlusive thrombus within the proximal and mid posterior tibial vein below the knee. This is likely new when compared to the previous examinations. This may be partially recanalized chronic thrombus. There is no Ledezma's cyst. IMPRESSION: 1. There is partially recanalized deep vein thrombosis involving the proximal and mid posterior tibial vein. This is new when compared to the most recent previous study dated 02/24/2015. 2. There is no deep vein thrombosis above the knee.
--- NOTE | 2016-12-01 08:35 | NUR ---
RUDY KWONG P Nurse Note by: JOSÉ MIGUEL GIL I agree with the SEBD TEACHER findings/evaluation of this patient's condition. Entered by: JOSÉ MIGUEL GIL Date: 12/01/16 Time: 0803
--- NOTE | 2016-12-01 08:38 | Operative Report ---
Operative/Inv Procedure Report Surgery Date: 12/01/16 Name of Procedure: left ureteroscopy with laser lithotripsy and stent placement Pre-Operative Diagnosis: left ureteral obstructing stones 4mm and 1mm Post-Operative Diagnosis: same Estimated Blood Loss: samm Surgeon/Heel Sorter: Angela Gonzalez Anesthesia: laryngeal mask airway Implants: ureteral stentn silicone Coloplast 6x22cm Drains: 6x22cm stent Specimens: stones Complications: none Condition: stable Operative Indication: obstructing ureteral stones with septic condition imminent Operative/Procedure Note Note: Operative dictation on patient Darnell Quiroz. He was admitted to [facility] ER yesterday with complaints of left back pain radiating to the left lower quadrant with nausea vomiting fever and chills. He had a fever of [address] scan findings that showed perinephric stranding as well as distal ureteral obstructing stone in the left ureter with hydronephrosis. He was admitted and started on Unasyn IV antibiotics and not kept nothing by mouth for the operating room. Patient was identified in the holding side in the holding area and consented for left ureteroscopy with laser lithotripsy pop stent placement and possible retrograde pyelogram. The risks benefits and alternatives of the surgery were given and all questions were answered. Patient was brought to the operating room placed on the operating table in supine position. Once timeout was performed IV Cipro antibiotics were given and LMA anesthesia was the placed. Patient was prepped and draped in the standard sterile fashion of the dorsal lithotomy position. Cystoscopy was performed the bladder was globally inspected. The globe bladder was without any lesions masses or trabeculation. Ureteral orifices were easily identified. The left ureteral orifice was cannulated with a sensor guidewire using a 5 Yoruba open- ended catheter. Semirigid ureteroscope was then passed up the ureter however there was difficulty once we got to the distal UVJ area. The semirigid scope was not able to be passed. As result a accident ureteral access sheath 25 cm was then placed however it was not long enough and did not reach the ureter. The cystoscope was then placed back into the bladder and to sensor wire was then placed up into the renal pelvis to allow for safety wires well. The flexible ureteroscope was then paced past at one of the ureter the ureteral access wires. The stone was easily visualized at this point. 200 laser fiber was then used to blast the stone into smaller pieces. The 0 tip basket was then used to grasp the larger one and a few the smaller ones followed suit and was removed. Stone was sent to pathology for stone analysis. The patient is on anticoagulation and so there was some bleeding from the ureter. The remaining safety wire was then used to place a 6 x 22 silicone wire. It did accordion a bit but it did reach into the renal pelvis and was seen to be in good position. The 0.038 wire was too large and so had to be switched to a 0.035 so the silicone wire was placed into the renal pelvis. Once it was done the wire was removed and the stent was seen to be in good position. The bladder was emptied. Patient tolerated the procedure well. Findings: ureteral stones in the distal ureter. No extravasation Discharge Disposition: PACU
--- NOTE | 2016-12-01 08:38 | Acceptance Note - Resident/Int ---
RERE MANNING,LUIZ 12/01/16 0823: Subjective Background: Patient was seen and examined in ER bed 6. He c/o mild-mod Lt. sided abdominal / flank pain after pain medications. He denies any fever/chills. His nausea was decreased. He is now off IV heparin anticipating surgical procedure this morning. Review of Systems Constitutional: Denies: chills, fever, weakness. EENTM: Reports: no symptoms. Cardiovascular: Denies: chest pain, orthopena, peripheral edema. Respiratory: Denies: cough, short of breath, sputum production, wheezing. Gastrointestinal: Reports: abdominal pain, nausea. Denies: diarrhea, vomiting. Genitourinary: Reports: no symptoms. Musculoskeletal: Reports: back pain. Skin: Reports: no symptoms. Neurological/Psychological: Reports: no symptoms. Hematologic/Endocrine: Reports: no symptoms. Immunologic/Allergic: Reports: no symptoms. Objective Last 24 Hrs of Vital Signs/I&O Vital Signs Date Time Temp Pulse Resp B/P Pulse O2 O2 Flow FiO2 Ox Delivery Rate 12/01 0542 98.6 95 18 156/95 98 11/30 2320 99.1 98 18 150/79 97 Room Air 11/30 2249 97 Room Air 11/30 2106 100.3 90 18 149/88 96 Room Air 11/30 1923 101.1 103 18 149/84 96 Room Air Intake & Output 12/01 1600 12/01 0800 12/01 0000 Intake Total 300 1000 Output Total 600 100 Balance -300 900 Intake, IV 300 1000 Output, Urine 600 100 Patient 230 lb Weight Physical Exam General Appearance: Alert, Oriented X3, Cooperative, Mild Distress Skin: No Significant Lesion HEENT: Atraumatic, PERRLA, EOMI, Rt. eye nystagmus s/p DREDGE RUNNER shunt Neck: Supple, No JVD, No thryomegaly, No LAD Lymphatic: Cervical nl Cardiovascular: Regular Rate, Normal S1, Normal S2, No Murmurs Lungs: Clear to Auscultation, Normal Air Movement Abdomen: Normal Bowel Sounds, Soft, LUQ mild tenderness Neurological: Normal Speech, Strength at 5/5 X4 Ext, Normal Tone, Sensation Intact, strabismus, nystagmus with underlying hydrocephalus s/p DREDGE RUNNER shunt Extremities: No Cyanosis, No Edema, Normal Pulses, No Tenderness/Swelling Vascular: Normal Pulses, Pulses Symmetrical Current Medications: Current Medications Sig/Carolyne Start time Last Medication Dose Route Stop Time Status Admin Ampicillin Sodium/ 0 .STK-MED ONE 11/30 2136 DC Sulbactam Sodium .ROUTE Ampicillin Sodium/ 3,000 MG ONCE ONE 11/30 2029 DC 11/30 Sulbactam Sodium IV 11/30 2058 2230 Sodium Chloride 100 ML Ceftriaxone Sodium 1,000 MG DAILY 12/01 1000 AC IV Heparin Sodium 25,000 UNIT Q24H 12/01 0730 DC (Porcine) IV Sodium Chloride 500 ML Heparin Sodium 25,000 UNIT Q24H 12/01 0500 AC 12/01 (Porcine) IV 0505 Sodium Chloride 500 ML Ketorolac 30 MG ONE ONE 11/30 2144 DC 11/30 Tromethamine IM 11/30 Ketorolac 0 .STK-MED ONE 11/30 2136 DC Tromethamine .ROUTE Ketorolac 30 MG ONCE ONE 11/30 2029 CAN Tromethamine IV 11/30 2030 Morphine Sulfate 4 MG ONCE ONE 11/30 2299 DC 11/30 IV 11/30 2300 2304 Morphine Sulfate 0 .STK-MED ONE 11/30 2257 DC .ROUTE Propranolol HCl 40 MG DAILY 12/01 1000 CAN PO Propranolol HCl 40 MG DAILY 12/01 1000 AC PO Sodium Chloride 1,000 ML Q13H 12/01 0315 AC 12/01 IV 0404 Sodium Chloride 1,000 ML BOLUS ONE 11/30 2330 DC 12/01 IV 12/01 0029 0005 Sodium Chloride 1,000 ML BOLUS ONE 11/30 2029 DC 11/30 IV 11/30 2128 2230 Topiramate 100 MG QAM 12/01 1000 CAN PO Topiramate 100 MG DAILY 12/01 1000 AC PO Topiramate 200 MG AT BEDTIME 12/01 0400 AC 12/01 PO 0404 Last 24 Hrs of Lab/August Results Last 24 Hrs of Labs/Mics: Laboratory Tests 12/01/16 0651: Anion Gap 6, Estimated GFR 54 L, BUN/Creatinine Ratio 16.4, CBC w Diff NO MAN DIFF REQ, RBC 4.79, MCV 88.2, MCH 29.5, RDW 14.3, MPV 9.2, Gran % 69.6, Lymphocytes % 17.7 L, Monocytes % 12.2 H, Eosinophils % 0.3, Basophils % 0.2, Absolute Granulocytes 7.2 H, Absolute Lymphocytes 1.8, Absolute Monocytes 1.3 H, Absolute Eosinophils 0, Absolute Basophils 0, PUBS MCHC 33.5 11/30/16 2355: Lactic Acid 0.9 11/30/16 2319: Urinalysis LIGHT H, Urine Color YEL, Urine Clarity CLEAR, Urine pH 6.0, Ur Specific [place] 1.010, Urine Protein NEG, Urine Ketones TRACE H, Urine Nitrite NEG, Urine Bilirubin NEG, Urine Urobilinogen 0.2, Ur Leukocyte Esterase NEG, Ur Microscopic SEDIMENT EXAMINED, Urine RBC 3-5, Urine WBC RARE, Ur Epithelial Cells RARE, Urine Mucus FEW, Urine Hemoglobin TRACE-INTACT H, Urine Glucose NEG 11/30/16 1944: Anion Gap 13, Estimated GFR 59 L, BUN/Creatinine Ratio 17.7, Glucose 144 H, Calcium 9.5, Total Bilirubin 0.7, AST 24, ALT 39, Alkaline Phosphatase 86, Total Protein 7.6, Albumin 4.5, Globulin 3.1, Albumin/Globulin Ratio 1.5, Amylase 32, Lipase 52, CBC w Diff NO MAN DIFF REQ, RBC 5.52, MCV 88.5, MCH 29.5, RDW 13.8, MPV 9.1, Gran % 84.2 H, Lymphocytes % 9.5 L, Monocytes % 6.1, Eosinophils % 0, Basophils % 0.2, Absolute Granulocytes 12.4 H, Absolute Lymphocytes 1.4, Absolute Monocytes 0.9 H, Absolute Eosinophils 0, Absolute Basophils 0, PUBS MCHC 33.4 Microbiology 12/01 0128 URINE ROUT: Urine Culture - COLB 12/01 0000 BLOOD: Blood Culture - RECD 11/30 2354 BLOOD: Blood Culture - RECD Lines/Diet/Fluids Lines: peripheral lines Assessment/Plan Assessment: 51-year-old gentleman with pmh of hydrocephalus s/p DREDGE RUNNER shunt, seizure, migraine, overactive bladder, DVT on Xarelto who presents to the ED with low back pain, fever, nausea, dysuria for 1 day. Patient was admitted to [facility] floor for following problem lists. 1. Sepsis of urological origin: complicated UTI with pyelonephritis, Lt. ureter obstructing stone with hydronephrosis. Will follow blood / urine culture. Lactic acid negative. He was given IV unasyn in ED, will continue IV ceftriaxone. Urology procedure (stent) by Dr. Gonzalez is scheduled this morning. Will follow pt after the procedure 2. FELICIA: secondary to urinary obstruction. Cr 1.4 (baseline 0.9-1.1). Continue gentle hydration and follow after procedure 3. History of DVT on Xarelto: Unprovoked DVT about 1.5 years ago. Patient follows a mixer helper taking Xarelto daily around 6 AM. Xarelto was discontinued and and the patient on IV heparin. Will follow lower extremity Doppler. 4. Hx of seizure/hydrocephalus/migraine : c/w propranolol and Topamax. DVT prophylaxis: on IV heparin. Full code Problem List: 1. Sepsis 2. Hydronephrosis with obstructing calculus 3. Hydrocephalus 4. Seizures Pain Ratin Pain Location: Lt. sided abdomen/flank pain Pain Goal: Pain 4 or less Pain Plan: tyrenol, oxycodoe, IV morphine Tomorrow's Labs & Rationales: CBC after procedure, IV heparin BEP for FELICIA DVT/Prophylaxis: pharmacological Discharge Plan Stable for Discharge? No ANDREI JEONG MD 12/01/16 1413: Attending MD Review Statement Attending Statement Attending MD Statement: examined this patient, discuss w/resident/PA/PLAYGROUND SUPERVISOR, agreed w/resident/PA/PLAYGROUND SUPERVISOR, reviewed EMR data (avail), discussed with nursing, discussed with case mgmt, reviewed images Attending Assessment/Plan: This is a fairly complex 51-year-old male with a past medical history of hydrocephalus with DREDGE RUNNER shunt, seizures, DVT on Xarelto was here with sepsis in the setting of an obstructive uropathy. He was taken to the OR and a lithotripsy and stent was done for an obstructing calculi. He was febrile to 101 on admission, interestingly his UA was not very impressive and the urine culture is still pending. We have him on IV ceftriaxone. He was in FELICIA and we are hydrating him for now. The ultrasound shows this DVT and the question is whether this is old or new and if this is in fact fairly new then he would be a Xarelto failure versus if this is old. We are going to get more records from the PCP and we are going to talk to radiology to find out if this is an old or new clot. Meanwhile given the lithotripsy and the stent we are going to do IV heparin. We confirmed with Dr. Gonzalez from urology who said we can do the IV heparin but we need to watch closely for bleeding because he might bleed anyway given the procedure done.
--- NOTE | 2016-12-01 11:10 | RADIOLOGY REPORT ---
EXAMINATION: XR ABDOMEN CLINICAL INDICATION: Left ureteric calculus with left-sided obstructive uropathy. Laser lithotripsy. Retrograde left ureteroscopy with stent insertion in the operating room. COMPARISON: CT abdomen and pelvis of 11/30/2016. TECHNIQUE: Fluoroscopic assistance was provided to Dr. Gonzalez for urologic procedure in the operating room. A total of 7 spot fluoroscopic images are submitted. KVP: 104 MAS: 3.6 FINDINGS: First 3 images demonstrate opacification of the portions of the left ureter. Subsequent images demonstrate a guidewire coursing through the ureter into the left renal pelvis. Last 2 images demonstrate placement of a double-J left ureteric stent. TOTAL FLUOROSCOPY TIME: 25 seconds IMPRESSION: Intraoperative fluoroscopic assistance was provided for retroverted left ureteroscopy and stent placement as described above. Please refer to Dr. Gonzalez's notes for further procedural details.
[2016-12-01 13:48] VITALS: BP 128/90
--- NOTE | 2016-12-01 15:18 | Event Note ---
Event Note Event Note: I spoke with Dr. Pearce (PCP), and Dr. Camacho (vascular surgery) regarding chronic DVT. Dr. Camacho has been following the patient about 1.5 years, and the patient developed multiple DVTs. He has high risk of recurrent thrombosis, and he's been taking xarelto. The last lower Ext US from outpt office on 11/10/16 showed chronic thrombosis on Lt. proximal peroneal vein. Today's US in [place] showed partially recanalized deep vein thrombosis involving the proximal and mid posterior tibial vein (Lt.) dictated by Dr. Kiko Hassan. I left a message on his office ([phone]) regarding the US finding whether it is new or old thrombosis. I'm waiting for his call. In the mean time, patient started on IV heparin after the Lt. lithotripsy & stent. We'll monitor CBC, ptt with IV heparin. It is anticipated that he could bleed after the procedure. I also spoke with Dr. Gonzalez regarding gustafson catheter. He doesn't have a gustafson post procedure. He doesn't need continuous bladder irrigation at this point. Will monitor the amount / severity of hematuria. Will decide whether pt needs to be on a different agent (eliquis) or same dose xarelto tomorrow monitoring bleeding while in IV heparin. This was discussed with Dr. Milligan, attending and the patient. Polly Macias PGY 4 IM/PM
[2016-12-01 22:55] VITALS: BP 143/93
--- NOTE | 2016-12-01 23:42 | NUR ---
ALERT AND ORIENTED X 3. VITAL SIGNS STABLE. DENIES CHEST PAIN. + PULSES NO DISCOMFORT NOTED. HEPARIN DRIP RUNNING. WILL CONTINUE TO MONITOR
[2016-12-02 03:23] LABS: PTT 46 SEC (25-37)
[2016-12-02 07:08] VITALS: BP 138/84
--- NOTE | 2016-12-02 07:25 | PN- Housestaff ---
See Addendum Subjective Follow-up For: Sepsis Urinary obstruction Chronic DVT Complaints: no complaints Subjective: Patient doesn' have any pain after Lt. lithotripsy & stent placement. No fever/chills. He had mod amount of hematuria filling bowl after procedure while on IV heparin. No dysuria. Review of Systems Constitutional: Denies: chills, malaise, weakness. EENTM: Reports: no symptoms. Cardiovascular: Denies: chest pain, palpitations, peripheral edema. Respiratory: Reports: no symptoms. Gastrointestinal: Denies: abdominal pain, nausea, vomiting. Genitourinary: Reports: hematuria. Denies: dysuria, pain. Musculoskeletal: Reports: no symptoms. Skin: Reports: no symptoms. Neurological/Psychological: Reports: pre-existing deficit. Hematologic/Endocrine: Reports: other. Immunologic/Allergic: Reports: no symptoms. Objective Last 24 Hrs of Vital Signs/I&O Vital Signs Date Time Temp Pulse Resp B/P Pulse O2 O2 Flow FiO2 Ox Delivery Rate 12/02 0708 98.8 75 18 138/84 97 Room Air 12/01 2255 97.4 98 18 143/93 96 Room Air 12/01 2027 Room Air Room Air 12/01 1348 98.6 85 18 128/90 96 Room Air 12/01 0825 99.6 80 20 146/86 98 Room Air Intake & Output 12/02 0800 12/02 0000 12/01 1600 Intake Total 659 777 1275 Output Total 400 500 600 Balance -164 150 940 Intake, IV 116 1300 Intake, Oral 120 650 240 Output, Urine 400 500 600 Patient 215 lb 230 lb Weight Physical Exam General Appearance: Alert, Oriented X3, Cooperative, No Acute Distress Skin: No Rashes, No Breakdown, No Significant Lesion HEENT: Atraumatic, PERRLA, strabismus with underlying hydrocephalus Neck: Supple, No JVD, No LAD Lymphatic: Cervical nl Cardiovascular: Regular Rate, Normal S1, Normal S2, No Murmurs Lungs: Clear to Auscultation, Normal Air Movement Abdomen: Normal Bowel Sounds, Soft, No Tenderness Neurological: Normal Speech, Strength at 5/5 X4 Ext, Normal Tone, Sensation Intact Extremities: No Edema, Normal Pulses, No Tenderness/Swelling Vascular: Normal Pulses, Pulses Symmetrical Current Medications: Current Medications Sig/Carolyne Start time Last Medication Dose Route Stop Time Status Admin Acetaminophen 1,000 MG .STK-MED ONE 12/01 1014 DC IV 12/01 1015 Acetaminophen 650 MG Q6P PRN 12/01 0845 AC PO Ceftriaxone Sodium 1,000 MG DAILY 12/01 1000 AC 12/02 IV 0817 Heparin Sodium 5,000 UNIT BOLUS ONE 12/02 0330 CAN (Porcine) IV 12/02 0700 Heparin Sodium 3,900 UNIT BOLUS ONE 12/02 0330 DC 12/02 (Porcine) IV 12/02 0331 0358 Heparin Sodium 25,000 UNIT Q24H 12/01 1345 AC 12/01 (Porcine) IV 2027 Sodium Chloride 500 ML Heparin Sodium 25,000 UNIT Q24H 12/01 1330 CAN (Porcine) IV Sodium Chloride 500 ML Heparin Sodium 25,000 UNIT Q24H 12/01 0500 DC 12/01 (Porcine) IV 0505 Sodium Chloride 500 ML Morphine Sulfate 2 MG Q4P PRN 12/01 0845 AC IV Oxybutynin Chloride 5 MG TID 12/01 1600 AC 12/02 PO 0818 Oxycodone HCl 5 MG Q6H PRN 12/01 0845 AC 12/02 PO 0634 Propranolol HCl 40 MG DAILY 12/01 1000 AC 12/02 PO 0818 Sodium Chloride 1,000 ML Q13H 12/01 0315 DC 12/01 IV 0404 Topiramate 100 MG DAILY 12/01 1000 AC 12/02 PO 0818 Topiramate 200 MG AT BEDTIME 12/01 0400 AC 12/01 PO 2227 Last 24 Hrs of Lab/August Results Last 24 Hrs of Labs/Mics: Laboratory Tests 12/02/16 0906: APTT Pending 12/02/16 0630: Anion Gap 8, Estimated GFR > 60, BUN/Creatinine Ratio 17.8, CBC w Diff NO MAN DIFF REQ, RBC 4.60 L, MCV 88.9, MCH 29.7, RDW 14.4, MPV 9.6, Gran % 57.7, Lymphocytes % 29.5, Monocytes % 10.1 H, Eosinophils % 2.4, Basophils % 0.3, Absolute Granulocytes 5.9, Absolute Lymphocytes 3.0, Absolute Monocytes 1.0 H, Absolute Eosinophils 0.2, Absolute Basophils 0, PUBS MCHC 33.4 12/02/16 0600: APTT Cancelled 12/02/16 0245: APTT 46 H 12/01/160: Lactic Acid 2.0 12/01/16 1509: Ref Lab Test Result Pending Microbiology 12/01 185 URINE ROUT: Urine Culture - RECD Lines/Diet/Fluids Lines: peripheral lines Assessment/Plan Assessment: 51-year-old gentleman with pmh of hydrocephalus s/p 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 Patient was admitted to [facility] floor for following problem lists. 1. Sepsis of urological origin: resolved after Lt.sided lithotripsy & ureter stent placeemnt 1DA by Dr. Gonzalez. V/S stable, WBC 10.3, Patient has hematuria s/ p procedure while on IV heparin for anticoagualtion. Hb/Hct stable. Will follow blood / urine culture. Continue IV ceftriaxone. 2. FELICIA: secondary to urinary obstruction, now resolved. Cr was decreased to 0.9. 3. History of DVT on Xarelto: Unprovoked DVT about 1.5 years ago[address] Patient followed Dr. Camacho taking Xarelto daily around 6 AM. Xarelto was discontinued and and the patient was placed on IV heparin. The last lower Ext US from outpt office on 11/10/16 showed chronic thrombosis on Lt. proximal peroneal vein. LE US 1DA showed partially recanalized deep vein thrombosis involving the proximal and mid posterior tibial vein (Lt.) There was concern whether the pt has chronic vs. acute thrombosis. Will wait for Dr. Camacho and discuss options for anticoagulation. 4. Hx of seizure/hydrocephalus/migraine : c/w propranolol and Topamax. DVT prophylaxis: on IV heparin. Full code Pain pathway Problem List: 1. Sepsis 2. Hydronephrosis with obstructing calculus 3. DVT (deep venous thrombosis) Pain Ratin Pain Location: NA Pain Goal: Pain 4 or less Pain Plan: po tyrenol, oxycodone, IV morphine per pain scale Tomorrow's Labs & Rationales: CBC/ptt - IV heparin, hematuria DVT/Prophylaxis: pharmacological Consulting Request: 1 Consulting Specialty: Urology Consulting Physician: Dr. Gonzalez Reason for Consult: Lt. sided hydronephrosis with obstructing stone Consulting Request: 2 Consulting Specialty: Thoracic/Vascular Surgery Consulting Physician: Dr. Camacho Reason for Consult: Chronic DVT on anticoagulation Discharge Plan Stable for Discharge? No
[2016-12-02 08:16] LABS: ABSOLUTE BASOPHIL COUNT 0 /CUMM (0.0-0.2); ABSOLUTE EOSINOPHIL COUNT 0.2 /CUMM (0.0-0.7); ABSOLUTE GRANULOCYTE CT 5.9 /CUMM (1.4-6.5); BASOPHIL % 0.3 % (0.0-2.0); EOSINOPHIL % 2.4 % (0-5); GRANULOCYTE % 57.7 % (42.2-75.2); HEMATOCRIT 40.9 % (42-52); MEAN CORPUSCULAR HGB 29.7 PG (27.0-31.0); MEAN CORPUSCULAR HGB CONC 33.4 G/DL (33.0-37.0); MEAN CORPUSCULAR VOLUME 88.9 FL (80.0-94.0); MEAN PLATELET VOLUME 9.6 FL (7.4-10.4); PLATELET COUNT 167 /CUMM (130-400); RBC DISTRIBUTION WIDTH 14.4 % (11.5-14.5); WHITE BLOOD CELL COUNT 10.3 /CUMM (4.8-10.8)
[2016-12-02 10:13] LABS: PTT 72 SEC (25-37)
--- NOTE | 2016-12-02 11:28 | NUR ---
PT'S URINE IS BRIGHT RED; MD LUIZ JERNIGAN IS AWARE; WILL CONTINUE TO MONITOR.
[2016-12-02 15:33] VITALS: BP 130/80
[2016-12-02 22:12] VITALS: BP 134/84
[2016-12-02 23:18] LABS: PTT 82 SEC (25-37)
[2016-12-03 07:00] VITALS: BP 130/80; BP 156/72
[2016-12-03 08:16] LABS: ABSOLUTE BASOPHIL COUNT 0 /CUMM (0.0-0.2); ABSOLUTE EOSINOPHIL COUNT 0.6 /CUMM (0.0-0.7); ABSOLUTE GRANULOCYTE CT 4.5 /CUMM (1.4-6.5); ABSOLUTE LYMPH COUNT 2.8 /CUMM (1.2-3.4); ABSOLUTE MONOCYTE COUNT 0.9 /CUMM (0.10-0.60); BASOPHIL % 0.5 % (0.0-2.0); EOSINOPHIL % 7.2 % (0-5); GRANULOCYTE % 51.2 % (42.2-75.2); MEAN CORPUSCULAR HGB 29.5 PG (27.0-31.0); MEAN CORPUSCULAR VOLUME 89.5 FL (80.0-94.0); MEAN PLATELET VOLUME 9.8 FL (7.4-10.4); PLATELET COUNT 169 /CUMM (130-400); RBC DISTRIBUTION WIDTH 14.6 % (11.5-14.5); WHITE BLOOD CELL COUNT 8.8 /CUMM (4.8-10.8)
--- NOTE | 2016-12-03 10:31 | PN- Housestaff ---
TA MANNING,RAMIRO 12/03/16 1031: Subjective Follow-up For: Sepsis Urinary obstruction Chronic DVT Complaints: no complaints Subjective: Patient followed up and examined by me today, patient is comfortable, does not offer any complaints, vitals stable overnight, no issues overnight Patient still has hematuria. Review of Systems Constitutional: Reports: no symptoms. Cardiovascular: Reports: no symptoms. Respiratory: Reports: no symptoms. Gastrointestinal: Reports: no symptoms. Genitourinary: Reports: see HPI, hematuria. Denies: dysuria, hesitation, pain. Musculoskeletal: Reports: no symptoms. Skin: Reports: no symptoms. Neurological/Psychological: Reports: no symptoms. Objective Last 24 Hrs of Vital Signs/I&O Vital Signs Date Time Temp Pulse Resp B/P Pulse O2 O2 Flow FiO2 Ox Delivery Rate 12/03 1452 98.8 80 22 130/90 96 Room Air 12/03 0910 66 132/86 12/03 0700 98.8 61 20 130/80 96 Room Air 12/02 2212 97.6 81 22 134/84 98 Room Air Intake & Output 12/03 1600 12/03 0800 12/03 0000 Intake Total 1023.6 310 650 Output Total 8394 765 0087 Balance -326.4 -315 -550 Intake, IV 223.6 10 Intake, Oral 800 300 650 Output, Urine 5798 909 6483 Physical Exam General Appearance: Alert, Oriented X3, Cooperative, No Acute Distress Other Physical Findings: Skin: No Rashes, No Breakdown, No Significant Lesion HEENT: Atraumatic, PERRLA, strabismus with underlying hydrocephalus Neck: Supple, No JVD, No LAD Lymphatic: Cervical nl Cardiovascular: Regular Rate, Normal S1, Normal S2, No Murmurs Lungs: Clear to Auscultation, Normal Air Movement Abdomen: Normal Bowel Sounds, Soft, No Tenderness, CVA nontender b/l Neurological: Normal Speech, Strength at 5/5 X4 Ext, Normal Tone, Sensation Intact Extremities: No Edema, Normal Pulses, No Tenderness/Swelling Vascular: Normal Pulses, Pulses Symmetrical Current Medications: Current Medications Sig/Carolyne Start time Last Medication Dose Route Stop Time Status Admin Acetaminophen 650 MG Q6P PRN 12/01 0845 AC PO Apixaban 5 MG BID 12/03 2200 AC PO Bisacodyl 5 MG ONE ONE 12/03 171 DC 12/03 PO 12/03 1716 1846 Ceftriaxone Sodium 1,000 MG DAILY 12/01 1000 AC 12/03 IV 0910 Heparin Sodium 25,000 UNIT Q24H 12/01 1345 DC 12/03 (Porcine) IV 1054 Sodium Chloride 500 ML Magnesium Hydroxide 30 ML AT BEDTIME 12/03 2200 AC PO Morphine Sulfate 2 MG Q4P PRN 12/01 0845 AC IV Oxybutynin Chloride 5 MG TID 12/01 1600 AC 12/03 PO 1709 Oxycodone HCl 5 MG Q6H PRN 12/01 0845 AC 12/03 PO 1847 Propranolol HCl 40 MG DAILY 12/01 1000 AC 12/03 PO 0910 Senna/Docusate Sodium 1 TAB BID PRN 12/02 2115 AC 12/03 PO 0911 Topiramate 100 MG DAILY 12/01 1000 AC 12/03 PO 0911 Topiramate 200 MG AT BEDTIME 12/01 0400 AC 12/02 PO 2126 Last 24 Hrs of Lab/August Results Last 24 Hrs of Labs/Mics: Laboratory Tests 12/03/16 1700: APTT Cancelled 12/03/16 1025: APTT 96 H 12/03/16 0646: CBC w Diff NO MAN DIFF REQ, RBC 4.70, MCV 89.5, MCH 29.5, RDW 14.6 H, MPV 9.8, Gran % 51.2, Lymphocytes % 31.4, Monocytes % 9.7 H, Eosinophils % 7.2 H, Basophils % 0.5, Absolute Granulocytes 4.5, Absolute Lymphocytes 2.8, Absolute Monocytes 0.9 H, Absolute Eosinophils 0.6, Absolute Basophils 0, PUBS MCHC 33.0 12/02/16 2248: APTT 82 H Assessment/Plan Assessment: 51-year-old gentleman with pmh of hydrocephalus 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 Patient was admitted to [facility] floor for following problem lists. 1. Sepsis of urological origin: resolved after Lt.sided lithotripsy & ureter stent placeemnt by Dr. Gonzalez. V/S stable, WBC 10.3, Patient has hematuria s/p procedure while on IV heparin for anticoagualtion. Hb/Hct stable. Will follow blood / urine culture. So far no growth. Continue IV ceftriaxone. 2. FELICIA: secondary to urinary obstruction, now resolved. Cr was decreased to 0.9. BEP was not ordered today. 3. History of DVT on Xarelto: Unprovoked DVT about 1.5 years ago[address] Patient followed Dr. Camacho taking Xarelto daily around 6 AM. Xarelto was discontinued and and the patient was placed on IV heparin. The last lower Ext US from outpt office on 11/10/16 showed chronic thrombosis on Lt. proximal peroneal vein. LE US done on this admission showed partially recanalized deep vein thrombosis involving the proximal and mid posterior tibial vein (Lt.) There was concern whether the pt has chronic vs. acute thrombosis. Dr. Camacho ( vascular surgeon) was called and anticoagulation option was discussed. Failure of Xarelto was considered and the patient was prescribed with Eliquis from this evening, and IV heparin was safely stopped. His PTT today was 96 at 1025hrs. 4. Hx of seizure/hydrocephalus/migraine : c/w propranolol and Topamax. DVT prophylaxis: on IV heparin. Full code Pain pathway Problem List: 1. Pyelonephritis 2. Hydronephrosis with obstructing calculus 3. DVT (deep venous thrombosis) Pain Ratin Pain Location: - Pain Goal: Remain pain free Pain Plan: prn Tomorrow's Labs & Rationales: CBC, BEP, INR Consulting Request: Consulting Specialty: Thoracic/Vascular Surgery Consulting Physician: Dr. Camacho Reason for Consult: Chronic DVT on anticoagulation ALISA MANNING,AMIR 12/03/16 1303: Attending MD Review Statement Attending Statement Attending MD Statement: examined this patient, discuss w/resident/PA/HYDRO ELECTRIC STATION OPERATOR, agreed w/resident/PA/HYDRO ELECTRIC STATION OPERATOR, reviewed EMR data (avail), discussed with nursing Attending Assessment/Plan: cont bowel regimen. remained stable. rest of the plan as per resident's note
[2016-12-03 10:47] LABS: PTT 96 SEC (25-37)
[2016-12-03 14:52] VITALS: BP 130/90
[2016-12-03 21:44] VITALS: BP 126/88
[2016-12-04 06:40] VITALS: BP 142/86
[2016-12-04 08:15] LABS: ABSOLUTE BASOPHIL COUNT 0 /CUMM (0.0-0.2); ABSOLUTE EOSINOPHIL COUNT 0.5 /CUMM (0.0-0.7); ABSOLUTE GRANULOCYTE CT 4.9 /CUMM (1.4-6.5); ABSOLUTE LYMPH COUNT 2.9 /CUMM (1.2-3.4); ABSOLUTE MONOCYTE COUNT 0.8 /CUMM (0.10-0.60); BASOPHIL % 0.4 % (0.0-2.0); EOSINOPHIL % 5.7 % (0-5); GRANULOCYTE % 53.8 % (42.2-75.2); HEMATOCRIT 46.1 % (42-52); MEAN CORPUSCULAR HGB 29.7 PG (27.0-31.0); MEAN CORPUSCULAR HGB CONC 33.3 G/DL (33.0-37.0); MEAN CORPUSCULAR VOLUME 89.2 FL (80.0-94.0); MEAN PLATELET VOLUME 9.6 FL (7.4-10.4); PLATELET COUNT 189 /CUMM (130-400); RBC DISTRIBUTION WIDTH 14.5 % (11.5-14.5); RED BLOOD CELL CT 5.17 /CUMM (4.70-6.10); WHITE BLOOD CELL COUNT 9.2 /CUMM (4.8-10.8)
[2016-12-04 08:20] LABS: PT 11.9 SEC (9.4-12.5)
--- NOTE | 2016-12-04 08:29 | PN- Housestaff ---
RERE MANNING,LUIZ 12/04/16 0828: Subjective Follow-up For: Sepsis with urologic origin Lt. hydronephrosis wirh obstructing stone Chronic DVT Complaints: Lt. side pain Subjective: Pt was seen and examined at bedside. He c/o Lt. side flank pain 3-10 with pain medication. His urine cleared up but still has bloody streak. His constipation was resolved, now having loose stool. Review of Systems Constitutional: Denies: chills, fever, weakness. EENTM: Reports: no symptoms. Cardiovascular: Denies: chest pain, palpitations, peripheral edema, syncope. Respiratory: Denies: cough, short of breath, sputum production. Gastrointestinal: Reports: diarrhea. Denies: abdominal pain, nausea, vomiting. Genitourinary: Reports: hematuria. Musculoskeletal: Reports: see HPI (Lt. flank pain). Skin: Reports: no symptoms. Neurological/Psychological: Reports: pre-existing deficit (strabismus, hydrocephalus ). Hematologic/Endocrine: Reports: no symptoms. Immunologic/Allergic: Reports: no symptoms. Objective Last 24 Hrs of Vital Signs/I&O Vital Signs Date Time Temp Pulse Resp B/P Pulse O2 O2 Flow FiO2 Ox Delivery Rate 12/04 0913 78 140/82 / 0640 98.6 81 20 142/86 98 Room Air 12/03 2144 98.2 64 20 126/88 97 Room Air 12/03 1452 98.8 80 22 130/90 96 Room Air Intake & Output 12/04 1600 / 0800 04/ 0000 Intake Total 800 Output Total 650 1000 Balance -650 -200 Intake, Oral 800 Number 3 3 Bowel Movements Output, Urine 650 1000 Physical Exam General Appearance: Alert, Oriented X3, Cooperative, No Acute Distress Skin: No Breakdown, No Significant Lesion HEENT: Atraumatic, PERRLA, Mucous Membr. moist/pink, strabismus Neck: Supple, No JVD, No LAD Lymphatic: Cervical nl Cardiovascular: Regular Rate, Normal S1, Normal S2, No Murmurs Lungs: Clear to Auscultation, Normal Air Movement Abdomen: Normal Bowel Sounds, Soft, No Tenderness Neurological: Normal Speech, Strength at 5/5 X4 Ext, Normal Tone, Sensation Intact Extremities: No Edema, Normal Pulses Vascular: Normal Pulses, Pulses Symmetrical Current Medications: Current Medications Sig/Carolyne Start time Last Medication Dose Route Stop Time Status Admin Acetaminophen 650 MG Q6P PRN 12/01 0845 DCD PO Apixaban 5 MG BID 12/03 2200 DCD 12/04 PO 0912 Bisacodyl 5 MG ONE ONE 12/03 1715 DC 12/03 PO 12/03 1716 1846 Ceftriaxone Sodium 1,000 MG DAILY 12/01 1000 DCD 12/04 IV 0913 Heparin Sodium 25,000 UNIT Q24H 12/01 1345 DC 12/03 (Porcine) IV 1054 Sodium Chloride 500 ML Magnesium Hydroxide 30 ML AT BEDTIME 12/03 220 DCD PO Morphine Sulfate 2 MG Q4P PRN 12/01 0845 DCD IV Oxybutynin Chloride 5 MG TID 12/01 1600 DCD 12/04 PO 0912 Oxycodone HCl 5 MG Q6H PRN 12/01 0845 DCD 12/04 PO 0547 Propranolol HCl 40 MG DAILY 12/01 1000 DCD 12/04 PO 0913 Senna/Docusate Sodium 1 TAB BID PRN 12/02 2115 DCD 12/03 PO 0911 Topiramate 100 MG DAILY 12/01 1000 DCD 12/04 PO 0912 Topiramate 200 MG AT BEDTIME 12/01 0400 DCD 12/03 PO 2209 Last 24 Hrs of Lab/August Results Last 24 Hrs of Labs/Mics: Laboratory Tests 12/04/16 0630: Anion Gap 7, Estimated GFR > 60, BUN/Creatinine Ratio 16.0, PT 11.9, INR 1.13, CBC w Diff NO MAN DIFF REQ, RBC 5.17, MCV 89.2, MCH 29.7, RDW 14.5, MPV 9.6, Gran % 53.8, Lymphocytes % 31.4, Monocytes % 8.7, Eosinophils % 5.7 H, Basophils % 0.4, Absolute Granulocytes 4.9, Absolute Lymphocytes 2.9, Absolute Monocytes 0.8 H, Absolute Eosinophils 0.5, Absolute Basophils 0, PUBS MCHC 33.3 12/03/16 1700: APTT Cancelled Lines/Diet/Fluids Lines: peripheral lines Assessment/Plan Assessment: 51-year-old gentleman with pmh of 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 Patient was admitted to [facility] floor for following problem lists. 1. Sepsis of urological origin: resolved after Lt.sided lithotripsy & ureter stent placement by Dr. Gonzalez. V/S stable, WBC 9.2, hematuria was decreased after discontinuing IV heparin. Blood / urine cultures remain negative. Will discharge pt with po keflex for total 14 day course. 2. FELICIA: secondary to urinary obstruction, now resolved. Cr was decreased to 1.0 3. History of DVT on Xarelto: Unprovoked DVT about 1.5 years ago[address] Patient followed Dr. Camacho taking Xarelto daily around 6 AM. Xarelto was discontinued and and the patient was placed on IV heparin. The last lower Ext US from outpt office on 11/10/16 showed chronic thrombosis on Lt. proximal peroneal vein. LE US done on this admission showed partially recanalized deep vein thrombosis involving the proximal and mid posterior tibial vein (Lt.) There was concern whether the pt has chronic vs. acute thrombosis. Failure of Xarelto was considered and the patient was prescribed with Eliquis from 12/03. Will discharge pt with po eliquis and patient needs to follow up with Dr. Camacho. 4. Hx of seizure/hydrocephalus/migraine : c/w propranolol and Topamax. DVT prophylaxis: po eliquis Full code Pain pathway Problem List: 1. Sepsis 2. Hydronephrosis with obstructing calculus 3. DVT (deep venous thrombosis) Pain Ratin Pain Location: Lt. flank pain Pain Goal: Pain 4 or less Pain Plan: dischargw with oxycodone #8 Tomorrow's Labs & Rationales: D/C Consulting Request: Consulting Specialty: Thoracic/Vascular Surgery Consulting Physician: Dr. Camacho Reason for Consult: Chronic DVT on anticoagulation Discharge Plan Discharge Disposition: home Stable for Discharge? Yes Anticipated Discharge (Day): today PAOLO GOODWIN MD 12/04/16 1029: Attending MD Review Statement Attending Statement Attending Statement: examined this patient, discuss w/resident/PA/STRAP STITCHER, agreed w/resident/PA/STRAP STITCHER, reviewed EMR data (avail), discussed with nursing, discussed with case mgmt, reviewed images, amended to note Attending Assessment/Plan: Patient seen and examined, overall feeling better. Still complaining of mild pain in the left side of his abdomen. But otherwise he remains afebrile and white white count has improved. Vital Signs Date Time Temp Pulse Resp B/P Pulse O2 O2 Flow FiO2 Ox Delivery Rate 12/04 0913 78 140/82 12/04 0640 98.6 81 20 142/86 98 Room Air 12/03 2144 98.2 64 20 126/88 97 Room Air 12/03 1452 98.8 80 22 130/90 96 Room Air on exam; aox3, nad. cv; s1,s2, rrr resp; clear and; soft, mildly tender in left side, bs+ ext; no edema. Laboratory Tests 12/04 12/03 0630 1700 Chemistry Sodium (137 - 145 mmol/L) 136 L Potassium (3.5 - 5.1 mmol/L) 4.3 Chloride (98 - 107 mmol/L) 106 Carbon Dioxide (22 - 30 mmol/L) 23 Anion Gap (5 - 16) 7 BUN (9 - 20 mg/dL) 16 Creatinine (0.7 - 1.2 mg/dL) 1.0 Estimated GFR (>60 ml/min) > 60 BUN/Creatinine Ratio (7 - 25 %) 16.0 Coagulation PT (9.4 - 12.5 SEC) 11.9 INR (0.90 - 1.17) 1.13 APTT Cancelled Hematology CBC w Diff NO MAN DIFF REQ WBC (4.8 - 10.8 /CUMM) 9.2 RBC (4.70 - 6.10 /CUMM) 5.17 Hgb (14.0 - 18.0 G/DL) 15.4 Hct (42 - 52 %) 46.1 MCV (80.0 - 94.0 FL) 89.2 MCH (27.0 - 31.0 PG) 29.7 RDW (11.5 - 14.5 %) 14.5 Plt Count (130 - 400 /CUMM) 189 MPV (7.4 - 10.4 FL) 9.6 Gran % (42.2 - 75.2 %) 53.8 Lymphocytes % (20.5 - 51.1 %) 31.4 Monocytes % (1.7 - 9.3 %) 8.7 Eosinophils % (0 - 5 %) 5.7 H Basophils % (0.0 - 2.0 %) 0.4 Absolute Granulocytes (1.4 - 6.5 /CUMM) 4.9 Absolute Lymphocytes (1.2 - 3.4 /CUMM) 2.9 Absolute Monocytes (0.10 - 0.60 /CUMM) 0.8 H Absolute Eosinophils (0.0 - 0.7 /CUMM) 0.5 Absolute Basophils (0.0 - 0.2 /CUMM) 0 PUBS MCHC (33.0 - 37.0 G/DL) 33.3 A/p; 51-year-old male with a past medical history of hydrocephalus with CLINICAL STAFF RN shunt , seizures, DVT on Xarelto was here with sepsis in the setting of an obstructive uropathy. He was taken to the OR and a lithotripsy and stent was done for an obstructing calculi. Currently treated with ceftriaxone. Urine cultures remain negative. Patient now is afebrile with bright blood cell count normal and overall doing better. He will be discharged home today on oral antibiotics to complete a total of 14 day course. He will be followed by Dr. Gonzalez in her office as well as his primary care doctor. Off note his anti-coagulation was switched from Xarelto to Eliquis after it was discussed with patient's vascular surgeon Dr. Bella Ochoa. As apparently his lower ext Doppler ultrasound was consistent with cannalized DVT which was new compared to the previous study and the Vascular surgery seemed to think that this might be a Xarelto failure. Therefore he has been switched to Eliquis. He will be discharged home today on oral abx as well as Eliquis. Will give him few pill supply of percocet.
[2016-12-04] MEDS ORDERED: OXYCODONE HCL5 M1 PO ×2 (08:30→09:20)
[2016-12-04] MEDS ORDERED: ELIQUIS5 M1 PO ×2 (08:30→09:20)
--- NOTE | 2016-12-04 08:35 | Patient Discharge Instructions ---
Discharge Instructions General Discharge Information You were seen/treated for: Sepsis with urologic origin Lt. hydronephrosis with obstructing calculus Chronic DVT You had these procedures: Lt. lithotripsy & stent placement Special Instructions: Please follow up with a primary care doctor within 1 week after discharge Please follow up with a urologist after Lt. lithotripsy and stent placement Please follow up with Dr. Camacho for chronic DVT Diet Continue normal diet: Yes Recommended Diet: Heart Healthy Activity Full Activity/No Limits: Yes Activity Self Limited: No Acute Coronary Syndrome Inclusion Criteria At DC or during hospital stay patient has or had the following: ACS DIAGNOSIS No Discharge Core Measures Meds if any: Prescribed or Continued at Discharge Meds if any: NOT Prescribed or Continued at Discharge Congestive Heart Failure Inclusion Criteria At DC or during hospital stay patient has or had the following: CHF DIAGNOSIS No Discharge Core Measures Meds if any: Prescribed or Continued at Discharge Meds if any: NOT Prescribed or Continued at Discharge Cerebrovascular accident Inclusion Criteria At DC or during hospital stay patient has or had the following: CVA/TIA Diagnosis No Discharge Core Measures Meds if any: Prescribed or Continued at Discharge Meds if any: NOT Prescribed or Continued at Discharge Venous thromboembolism Inclusion Criteria VTE Diagnosis Yes VTE Type Deep Venous Thrombosis VTE Confirmed by (Test) EXT BILATERAL VENOUS DOPP Discharge Core Measures - Per Current guidelines, there needs to be overlap - treatment for the first 5 days of Warfarin therapy. - If discharged on Warfarin prior to 5 days of - overlap therapy, the patient will need to be - assessed for post discharge needs including - *Post discharge parental anticoagulation - *Warfarin and/or parental anticoagulation education - *Follow up date to check INR post discharge At least 5 days overlap therapy as Inpatient No Meds if any: Prescribed or Continued at Discharge Note: Overlap Therapy is Warfarin and Anticoagulant Meds if any: NOT Prescribed or Continued at Discharge No Overlap Therapy d/t Prescribed other Anticoag
[2016-12-04] MEDS ORDERED: KEFLEX500 M1 PO ×3 (09:12→09:25)
[2016-12-04 09:13] VITALS: BP 140/82
--- NOTE | 2016-12-04 10:25 | Discharge Summary ---
Visit Information Visit Dates Admission Date: 12/01/16 Discharge Date: 12/04/16 Hospital Course Course Attending Physician: BUDDY MANNING,PAOLO Primary Care Physician: RAIZA MANNING,EMMA Nails Other Care Providers: Dr. Major, vascular surgery Consulting Request: 1 Consulting Specialty: Urology Consulting Physician: Dr. Gonzalez Reason for Consult: Lt. hydronephrosis Hospital Course: 51-year-old gentleman with pmh of hydrocephalus status post AIRCRAFT MAINTENANCE MANAGER shunt, seizure, migraine, overactive bladder, DVT on Xarelto on 1.5 years presented with shart Lt. lower quadrant pain. He c/o sharp left lower quadrant pain, back pain, which started as low back, then radiated, sharp, severe, 10/10, associated with fever, chills, nausea and vomiting. He observed blood in urine but denied any frequency and urgency. He has overacitve bladder. Initial V/S: Temparature 101.1F, pulse rate 103, respiratory rate 18, blood pressure 149/84, oxygen saturation 96% on room air. On physical exam, General: AAO 3, NAD. HEENT: Atraumatic, PERRLA, EOMI, moist mucous membrane, normal pharynx. Neck: Supple, no JVD, no LAD. CV: RRR, no murmur. Lungs: CTA BL. Abdomen: Normal bowel sounds, soft, distended, NT. CVA tenderness present bilaterally. Extremities: No edema, normal pulse, no calf tenderness. Neurology: Normal speech, cranial nerves III-12 intact, normal reflexes, normal range of motion and strength. Sensation intact. Skin: Warm with normal capillary refill. Labs: WBC 14.7 with granulocytosis 84%. BUN/Creatinine 23/1.3, glucose 144, lactic acid 0.9. LFT 24/39, UA positive for trace hematuria/ketones. CT abdomen/pelvis with IV contrast: Obstructive 4 mm distal left ureteral calculus with resultant grade 2 hydroureteronephrosis with left perinephric stranding. Diverticulosis without evidence of diverticulitis. 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 Small hiatal hernia. Patient was admitted to floor for following problem lists; 1. Sepsis secondary to complicated UTI with pyelonephritis and hydronephrosis with obstructing stone: Patient was given aggressive IV hydration with 2 L NS bolus followed by 150 mL per hour. Urine culture and blood cultures were sent. Lactate was normal. He was given IV ceftriaxone empirically. Urology consult was obtained from Dr. Gonzalez. Lt. sided lithotripsy & ureter stent placement was done by Dr. Gonzalez on 12/01/16. After the procedure, sepsis was resolved without fever/ leukocytosis. Blood / urine cultures remained negative. Patient will be discharged with po keflex for total 14-day course. 2. Acute kidney injury: secondary to urinary obstruction, now resolved. Cr was decreased from 1.4 to to 1.0. 3. History of DVT on Xarelto: He has unprovoked DVT about 1.5 years ago with multiple DVTs. Patient has followed Dr. Camacho taking Xarelto daily around 6 AM. Before the surgical procedure, po xarelto was discontinued, and the patient was given IV heparin. The last lower Ext US from outpt office on 11/10/16 showed chronic thrombosis on Lt. proximal peroneal vein. LE US done on this admission (12/01/16) showed partially recanalized deep vein thrombosis involving the Lt. proximal and mid posterior tibial vein. There was a concern about failure of Xarelto. PO Eliquis was started from 12/03/16. Patient will be discharged with po eliquis 5mg bid and patient will follow up with Dr. Camacho. 4. Hx of hydrocephalus s/p AIRCRAFT MAINTENANCE MANAGER shunt/seizure/migraine: Stable, no seizure activity during hospitalization. We continued po propranolol and Topamax. DVT prophylaxis: po eliquis Full code Allergies: Coded Allergies: No Known Allergies (11/30/16) Significant Procedures: 12/01/16 : left ureteroscopy with laser lithotripsy and stent placement Pertinent Lab Results: Lt. ureteral stones: Carbonate apatitie 90% Calcium oxalate 10% Disposition Summary Disposition Principal Diagnosis: Sepsis with urologic origin Lt. hydronephrosis with obstructing ureteral stones Acute kidney injury, resolved Chronic DVT Additional Diagnosis: hydrocephalus s/p AIRCRAFT MAINTENANCE MANAGER shunt Seizure disorder Migraine Discharge Disposition: home or self care Discharge Instructions General Discharge Information Code Status: Full Code Patient's Diet: Regular diet Patient's Activity: Increase as tolerated Follow-Up Instructions/Appts: Please follow up with a primary care doctor within 1 week after discharge Please follow up with a urologist after Lt. lithotripsy and stent placement Please follow up with Dr. Camacho for chronic DVT Medications at Discharge Discharge Medications: Stop taking the following medications: Rivaroxaban (Xarelto) 20 MG TABLET ORAL DAILY Qty = 90 Continue taking these medications: Propranolol HCl (Propranolol HCl) 40 MG TABLET 1 Tablet ORAL DAILY Comments: Last Taken: 12/04/16 Time: 9:15 AM Topiramate (Topamax) 200 MG TABLET 1 Tablet ORAL Every night Comments: Last Taken: 12/03/16 Time: 10:00 PM Topiramate (Topamax) 100 MG TABLET 1 Tablet ORAL DAILY Comments: Last Taken: 12/04/16 Time: 9:15 AM Oxybutynin Chloride (Oxybutynin Chloride ER) 15 MG TAB.ER.24 1 Tablet ORAL DAILY Qty = 90 Comments: Last Taken: 12/04/16 Time: 9:15 AM Start taking the following new medications: Apixaban (Eliquis) 5 MG TABLET 1 Tablet ORAL TWICE DAILY Qty = 60 No Refills Comments: Last Taken: 12/04/16 Time: 9:15 AM Oxycodone HCl (Oxycodone HCl) 5 MG TABLET 1 Tablet ORAL Q6H as needed for PAIN SCALE 7-10 (SEVERE) Qty = 8 No Refills Comments: Last Taken: 12/04/16 Time: 6:00 AM Cephalexin (Keflex) 500 MG CAPSULE 1 Capsule ORAL EVERY SIX HOURS Qty = 44 No Refills Comments: NOT GIVEN IN HOSPITAL Copies To: GINO MANNING,PHILLIP; BUDDY MANNING,PAOLO; RAIZA MANNING,EMMA Nails; [place] MANNING,[facility]
== END 2016-12-04 10:50 | DRG 854 ==
LOC: ENRESERVDT → ENRESERVTM → CANRESERV → ERH 18:33 → ERHI 12-01 01:04 → 2NB 12-01 13:44
PROVIDERS: Dermatology; Emergency Medicine; Internal Medicine; Internal Medicine Medical Oncology; ADMIT Internal Medicine
PROC: 0T778DZ Dilation of Left Ureter with Intraluminal Device, Via Natural or Artificial Opening Endoscopic (ICD-10-PCS; principal; 2016-12-01)
PROC: 0TC78ZZ Extirpation of Matter from Left Ureter, Via Natural or Artificial Opening Endoscopic (ICD-10-PCS; principal; 2016-12-01)
DX: A41.9 Sepsis, unspecified organism (principal); N39.0 Urinary tract infection, site not specified; G91.9 Hydrocephalus, unspecified; N17.9 Acute kidney failure, unspecified; N13.6 Pyonephrosis; I82.5Z2 Chronic embolism and thrombosis of unspecified deep veins of left distal lower extremity; Z79.01 Long term (current) use of anticoagulants
CPT/HCPCS: 2NBSP; 85270; 36415; 74000; 74177; 81001; 82355; 82436; 87040; 87086; 93970; 96361; 96372; 96374; 96375; J0131; J0696; J0744; J1100; J1644; J1885; J2405

== ENCOUNTER 2016-12-11 16:29 | Emergency (ER) | payer OTHER, MEDICARE ==
[~2016-12-11] VITALS: Ht 163.2 cm; Wt 97.5 kg
[~2016-12-11 16:29] MED LIST changes: +ELIQUIS5 M1 PO; +KEFLEX500 M1 PO; +OXYBUTYNIN CHLO15 M1 PO; +OXYCODONE HCL5 M1 PO; +XARELTO20 M2 PO
[2016-12-11 17:01] LABS: ABSOLUTE BASOPHIL COUNT 0 /CUMM (0.0-0.2); ABSOLUTE EOSINOPHIL COUNT 0.2 /CUMM (0.0-0.7); ABSOLUTE GRANULOCYTE CT 13.9 /CUMM (1.4-6.5); ABSOLUTE LYMPH COUNT 1.5 /CUMM (1.2-3.4); ABSOLUTE MONOCYTE COUNT 0.5 /CUMM (0.10-0.60); BASOPHIL % 0.3 % (0.0-2.0); EOSINOPHIL % 1.4 % (0-5); HEMATOCRIT 47.6 % (42-52); MEAN CORPUSCULAR HGB 29.3 PG (27.0-31.0); MEAN CORPUSCULAR HGB CONC 32.9 G/DL (33.0-37.0); MEAN PLATELET VOLUME 10.1 FL (7.4-10.4); PLATELET COUNT 228 /CUMM (130-400); RBC DISTRIBUTION WIDTH 14.4 % (11.5-14.5); RED BLOOD CELL CT 5.35 /CUMM (4.70-6.10); WHITE BLOOD CELL COUNT 16.2 /CUMM (4.8-10.8)
--- NOTE | 2016-12-11 17:04 | ED GI/GU/ABDOMINAL COMPLAINT ---
History of Present Illness General Chief Complaint: Male Genitourinary Problems Stated Complaint: RIGHT SIDED BACK PAIN, HEMATURIA Source: patient, family, old records Exam Limitations: no limitations Vital Signs & Intake/Output Vital Signs & Intake/Output Vital Signs Date Time Temp Pulse Resp B/P Pulse O2 O2 Flow FiO2 Ox Delivery Rate 12/11 1901 97.0 78 17 128/82 99 Room Air 12/11 1638 97.1 92 20 131/97 97 Room Air Room Air Allergies Coded Allergies: No Known Allergies (11/30/16) Reconcile Medications Apixaban (Eliquis) 5 MG TABLET 1 TAB PO BID DVT Cephalexin (Keflex) 500 MG CAPSULE 1 CAP PO Q6 UTI Cephalexin (Keflex) 500 MG CAPSULE 1 CAP PO BID UTI Hydromorphone HCl (Dilaudid) 2 MG TABLET 1 TAB PO BIDP PRN PAIN Ondansetron HCl (Zofran) 4 MG TABLET 1 TAB PO Q6-8P PRN NAUSEA Oxybutynin Chloride (Oxybutynin Chloride ER) 15 MG TAB.ER.24 1 TAB PO DAILY OVERACTIVE BLADDER (Reported) Oxycodone HCl 5 MG TABLET 1 TAB PO Q6H PRN PAIN SCALE 7-10 (SEVERE) Propranolol HCl 40 MG TABLET 1 TAB PO DAILY MIGRAINES (Reported) Tamsulosin HCl (Flomax) 0.4 MG CAP.ER.24H 1 CAP PO DAILY KIDNEY STONE Topiramate (Topamax) 200 MG TABLET 1 TAB PO QPM SEIZURES (Reported) Topiramate (Topamax) 100 MG TABLET 1 TAB PO DAILY SEIZURES (Reported) Triage Note: PT TO ED WITH C/O RIGHT SIDED PAIN AND HEMATURIA, ALSO C/O NAUSEA. PT HAS HX OF SEIZURES AND PER FAMILY "ONCE HE GOES IN TO ONE IT TAKES ALOT OF MEDS TO GET HIM OUT OF IT, AND HE WAS IN ICU". Triage Nurses Notes Reviewed? 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 Patient is nauseous without emesis. Last bowel movement was within last 24 hours no blood no melena noted. Patient last ate this a.m. Denies any fever chills. Does describe positive scant urination production with hematuria. It is noted that patient on 12/01/2016 received left urethral lithotripsy performed by Dr. Bell and stent placement in which she had a multiple ureteral stones. Past History Travel History Traveled to [place] past 21 day No Medical History Any Pertinent Medical History? see below for history Neurological: migraine, seizure, HYRDOCEPHALUSwith CUSTOMER SERVICE DRIVER shunt EENT: NONE Cardiovascular: NONE Respiratory: NONE Gastrointestinal: NONE Hepatic: NONE Renal: OVERACTIVE BLADDER Musculoskeletal: NONE Psychiatric: NONE Endocrine: NONE Blood Disorders: DVT Cancer(s): NONE RESPIRATORY CARE SPECIALIST/Reproductive: NONE History of MRSA: No History of VRE: No History of CDIFF: No Surgical History Surgical History: EYE SURGERIES SHUNT PLACEMENT shunt Psychosocial History Who do you live with Patient/Self Services at Home None What is your primary language Swedish Tobacco Use: Never used ETOH Use: denies use Illicit Drug Use: denies illicit drug use Family History Family History, If Any: Relation not specified for: *No pertinent family history Hx Contributory? No Review of Systems Review of Systems Constitutional: Reports: no symptoms. EENTM: Reports: no symptoms. Respiratory: Reports: no symptoms. Cardiovascular: Reports: no symptoms. GI: Reports: see HPI, abdominal pain, nausea. Genitourinary: Reports: no symptoms. Musculoskeletal: Reports: no symptoms. Skin: Reports: no symptoms. Neurological/Psychological: Reports: no symptoms. Hematologic/Endocrine: Reports: no symptoms. Immunologic/Allergic: Reports: no symptoms. All Other Systems: Reviewed and Negative Physical Exam Physical Exam General Appearance: mild distress Gastrointestinal: distention, RIGHT-SIDED FLANK AND QUADRANT POINT TENDERNESS, Comments: HEENT: Normal EENT exam Neck: Supple, no lymphadenopathy, normal range of motion without pain or tenderness Back: Nontender, no CVA tenderness. Cardiovascular: Regular rate and rhythms no murmurs rubs or gallops, normal JVP Respiratory: Chest nontender. No respiratory distress.breath sounds clear to auscultation bilaterally Extremity: No edema, no calf tenderness to palpation, normal and equal pulses. Neuro: Alert oriented x3, motor sensory normal, Skin: No appreciable rash on exposed skin, skin is warm and dry. Psych: Mood and affect is normal, memory and judgment is normal. Core Measures ACS in differential dx? No Severe Sepsis Present: No Septic Shock Present: No Progress Differential Diagnosis: AAA, AMI, appendicitis, biliary colic, bowel obstruction , colon cancer, cholecystitis, diverticulitis, epididymitis, esophageal varices, gastritis, hepatitis, hernia, hemorrhoids, ischemic bowel, inflamm bowel dis, Cherrie-Zakiya tear, orchitis, pancreatitis, prostatitis, peptic ulcer, PUD/GERD, perforated viscous, pyelonephritis, SBO, STD, testicular torsion, ureterolithiasis, urinary retention, urethritis, UTI/pyelo Plan of Care: Orders Procedure Date/time Status Add-on Test (ER Only) 12/11 170 Active BLOOD CULTURE 12/11 1702 Active URINALYSIS 12/11 1650 Complete LACTIC ACID 12/11 1645 Complete BLOOD CULTURE 12/11 1640 Active COMPREHENSIVE METABOLIC PANEL 12/11 1640 Complete CBC WITHOUT DIFFERENTIAL 12/11 1640 Complete Laboratory Tests 12/11/16 1650: Urine Color YEL, Urine Clarity HAZY H, Urine pH 6.0, Ur Specific Hector >= 1.030, Urine Protein >=300 H, Urine Ketones TRACE H, Urine Nitrite NEG, Urine Bilirubin NEG, Urine Urobilinogen 1.0, Ur Leukocyte Esterase SMALL H, Ur Microscopic SEDIMENT EXAMINED, Urine RBC >75 H, Urine WBC 3-5 H, Urine Bacteria RARE H, Urine Hemoglobin LARGE H, Urine Glucose NEG 12/11/16 1645: Anion Gap 14, Estimated GFR > 60, BUN/Creatinine Ratio 17.5, Glucose 163 H, Lactic Acid 0.9, Calcium 9.4, Total Bilirubin 0.4, AST 22, ALT 58, Alkaline Phosphatase 77, Total Protein 7.4, Albumin 4.2, Globulin 3.2, Albumin/Globulin Ratio 1.3, CBC w Diff MAN DIFF ORDERED, RBC 5.35, MCV 89.0, MCH 29.3, RDW 14.4, MPV 10.1, Gran % 86.0 H, Lymphocytes % 9.5 L, Monocytes % 2.8, Eosinophils % 1.4, Basophils % 0.3, Absolute Granulocytes 13.9 H, Segmented Neutrophils 87 H , Absolute Lymphocytes 1.5, Lymphocytes 7 L, Monocytes 5, Absolute Monocytes 0.5, Eosinophils 1, Absolute Eosinophils 0.2, Absolute Basophils 0, Platelet Estimate VERIFIED BY SMEAR, Normocytic RBCs VERIFIED, Normochromic RBCs VERIFIED , PUBS MCHC 32.9 L, Fld Total RBCs Counted 100 Microbiology 12/11 1855 BLOOD: Blood Culture - RECD 12/11 1645 BLOOD: Blood Culture - RECD Patient does have concerns of a right [address] scan. Patient was in no apparent distress and had significant resolution of his pain prior to discharge. Patient was strongly advised to follow up with urology. Patient was able tolerate by mouth (CORNELIUS GUNDERSON,YULISSA) Diagnostic Imaging: Viewed by Me: CT Scan. Radiology Impression: acute abnormality Initial ED EKG: none Comments: PATIENT: RUDY KWONG PRESENT AGE: 51 PATIENT ACCOUNT NO: [id number] : 67 LOCATION: [facility] ORDERING PHYSICIAN: YULISSA GUNDERSON SERVICE DATE: 12/11/16 EXAM TYPE: CAT - CT ABD & PELVIS W/O IV CONTRAS EXAMINATION: CT ABDOMEN AND PELVIS WITHOUT CONTRAST CLINICAL INFORMATION: Right flank pain. COMPARISON: CT abdomen and pelvis 11/30/2016 TECHNIQUE: Multidetector volumetric imaging was performed from the superior aspect of the liver through the pubic symphysis. Sagittal and coronal reformatted images were obtained on the technologist's workstation. DLP: 950 mGy-cm FINDINGS: LUNG BASES: There are findings interval nodules visualized in both lung bases which are stable compared to. The heart size is normal. There is thickening and distention of distal esophagus probably from a small hiatal hernia. LIVER, GALLBLADDER, AND BILIARY TREE: The liver is normal in size, shape, and attenuation. No focal hepatic lesion or biliary ductal dilatation is present. There are 2 5 mm radiopaque gallstones without wall thickening or pericholecystic inflammatory changes. The common bile duct is normal caliber. PANCREAS: Unremarkable. SPLEEN: Unremarkable. ADRENAL GLANDS: Unremarkable. KIDNEYS AND URETERS: Both kidneys are normal size, shape and position. There is a left ureteral stent with its proximal end in the left kidney cortex superior pole. The distal end is coiled within the bladder. Previously visualized left distal ureteral stone is not seen at this time. However there is a 2 mm radiopaque density in the right distal ureter which was probably present in the right mid to distal ureter on the previous exam image 64, series 2. Retrograde transfer of radiopaque stone from the left distal ureter cannot be entirely excluded. Previously there was no radiopaque right kidney calculi. There is now mild prominence of right ureter and kidney pelvis. There is mild retroperitoneum left flank haziness from obstructive etiology or intervention. No discrete of focal collection seen in the left flank. BLADDER: No radiopaque calculi seen. The bladder is undistended. GASTROINTESTINAL TRACT: there is diffuse sigmoid and descending colon diverticulosis scattered diverticuli seen in the rest of the colon. There is no diverticulitis, bowel obstruction. The small bowel loops are unremarkable. There is a small catheter extending from the lower right anterior chest wall to the left abdominal wall entering the left upper abdomen and terminating in the left upper quadrant. ABDOMINAL WALL: No significant hernia is appreciated. LYMPH NODES: Normal. VASCULAR: Unremarkable. PELVIC VISCERA: No free air or free fluid seen. The prostate gland is normal size. OSSEOUS STRUCTURES: There are degenerative disc changes upper lumbar spine. IMPRESSION: Previously visualized the left distal ureteral Pain left UVJ stone are not visualized. In its place there is a left ureteral stent with its proximal end in the upper pole left kidney cortex and the distal end in the bladder. There is mild haziness in the left flank probably secondary to previous obstruction or intervention. There is a new 2 mm radiopaque calculi in right distal ureter adjacent 2 UV junction. This is most likely migrated radiopaque stone from a right distal ureteral position as described above. Cannot exclude a refluxed stone from the left ureter via the urinary bladder, however rare to see this. Diffuse sigmoid and descending colon diverticulosis without diverticulitis. No bowel obstruction seen. No free air. Appendix is normal caliber. Small hiatal hernia. Rest of the findings are stable and unchanged. Departure Departure Disposition: HOME OR SELF CARE Condition: Stable Clinical Impression Primary Impression: Kidney stone on right side Referrals: BELGICA MANNING,MARINA EASTMAN MD,EMMA Nails (PCP/Family) Additional Instructions: As discussed please call your urologist tomorrow to make an appointment to be seen this week for further evaluation treatment. Begin the prescription of Dilaudid as directed for pain. Begin the prescription of Zofran for nausea, and Flomax for your symptoms. Begin the prescription of Keflex as directed for the full course. presciptions are waiting at [facility] pharmacy. If symptoms worsen return to emergency room. Begin drinking plenty of water for hydration Departure Forms: Customer Survey General Discharge Information Prescriptions: Current Visit Scripts Ondansetron HCl (Zofran) 1 TAB PO Q6-8P PRN NAUSEA #15 TAB Cephalexin (Keflex) 1 CAP PO BID #14 CAP Tamsulosin HCl (Flomax) 1 CAP PO DAILY #20 CAP Hydromorphone HCl (Dilaudid) 1 TAB PO BIDP PRN PAIN #12 TAB
--- NOTE | 2016-12-11 18:37 | CT SCAN REPORT ---
EXAMINATION: CT ABDOMEN AND PELVIS WITHOUT CONTRAST CLINICAL INFORMATION: Right flank pain. COMPARISON: CT abdomen and pelvis 11/30/2016 TECHNIQUE: Multidetector volumetric imaging was performed from the superior aspect of the liver through the pubic symphysis. Sagittal and coronal reformatted images were obtained on the technologist's workstation. DLP: 950 mGy-cm FINDINGS: LUNG BASES: There are findings interval nodules visualized in both lung bases which are stable compared to. The heart size is normal. There is thickening and distention of distal esophagus probably from a small hiatal hernia. LIVER, GALLBLADDER, AND BILIARY TREE: The liver is normal in size, shape, and attenuation. No focal hepatic lesion or biliary ductal dilatation is present. There are 2 5 mm radiopaque gallstones without wall thickening or pericholecystic inflammatory changes. The common bile duct is normal caliber. PANCREAS: Unremarkable. SPLEEN: Unremarkable. ADRENAL GLANDS: Unremarkable. KIDNEYS AND URETERS: Both kidneys are normal size, shape and position. There is a left ureteral stent with its proximal end in the left kidney cortex superior pole. The distal end is coiled within the bladder. Previously visualized left distal ureteral stone is not seen at this time. However there is a 2 mm radiopaque density in the right distal ureter which was probably present in the right mid to distal ureter on the previous exam image 64, series 2. Retrograde transfer of radiopaque stone from the left distal ureter cannot be entirely excluded. Previously there was no radiopaque right kidney calculi. There is now mild prominence of right ureter and kidney pelvis. There is mild retroperitoneum left flank haziness from obstructive etiology or intervention. No discrete of focal collection seen in the left flank. BLADDER: No radiopaque calculi seen. The bladder is undistended. GASTROINTESTINAL TRACT: there is diffuse sigmoid and descending colon diverticulosis scattered diverticuli seen in the rest of the colon. There is no diverticulitis, bowel obstruction. The small bowel loops are unremarkable. There is a small catheter extending from the lower right anterior chest wall to the left abdominal wall entering the left upper abdomen and terminating in the left upper quadrant. ABDOMINAL WALL: No significant hernia is appreciated. LYMPH NODES: Normal. VASCULAR: Unremarkable. PELVIC VISCERA: No free air or free fluid seen. The prostate gland is normal size. OSSEOUS STRUCTURES: There are degenerative disc changes upper lumbar spine. IMPRESSION: Previously visualized the left distal ureteral Pain left UVJ stone are not visualized. In its place there is a left ureteral stent with its proximal end in the upper pole left kidney cortex and the distal end in the bladder. There is mild haziness in the left flank probably secondary to previous obstruction or intervention. There is a new 2 mm radiopaque calculi in right distal ureter adjacent 2 UV junction. This is most likely migrated radiopaque stone from a right distal ureteral position as described above. Cannot exclude a refluxed stone from the left ureter via the urinary bladder, however rare to see this. Diffuse sigmoid and descending colon diverticulosis without diverticulitis. No bowel obstruction seen. No free air. Appendix is normal caliber. Small hiatal hernia. Rest of the findings are stable and unchanged.
[2016-12-11] MEDS ORDERED: DILAUDID2 M1 PO ×2 (19:45→20:00)
[2016-12-11] MEDS ORDERED: KEFLEX500 M1 PO (19:45)
[2016-12-11] MEDS ORDERED: FLOMAX0.4 M1 PO (19:45)
[2016-12-11] MEDS ORDERED: ZOFRAN4 M2 PO (19:45)
[2016-12-11 20:22] VITALS: BP 122/70
== END 2016-12-11 20:23 ==
LOC: ERH 16:29
PROVIDERS: Emergency Medicine
DX: N20.0 Calculus of kidney (principal); R31.9 Hematuria, unspecified
CPT/HCPCS: 74176; 81001; 87040; 96374; 96375; J2405

== ENCOUNTER → 2018-05-31 | Day surgery (SDC) | payer OTHER, MEDICARE ==
[~2018-05-31] VITALS: Ht 154.9 cm; Wt 90.7 kg
[~2018-05-31] MED LIST changes: +DILAUDID2 M1 PO; +FLOMAX0.4 M1 PO; +ZOFRAN4 M2 PO
--- NOTE | 2018-05-31 10:55 | Operative Report ---
Operative/Inv Procedure Report Surgery Date: 05/31/18 Name of Procedure: InterStim stage I and 2 sacral neuromodulation Pre-Operative Diagnosis: Urge incontinence and nocturia and urinary retention Post-Operative Diagnosis: Same Estimated Blood Loss: less than 50ml Surgeon/Seaman: Angela Gonzalez MD Anesthesia: local monitored anesthesi Implants: [employer] sacral neuromodulation lead and battery Complications: None Condition: Stable Operative Indication: Surgeon incontinence and nocturia and urinary retention Operative/Procedure Note Note: 52-year-old male with a history of overactive bladder and urge incontinence and urinary retention with nocturia. He was very bothered by this and had an InterStim per trauma the office many months ago with greater than 50% improvement however due to life circumstances he opted to continue with second line therapy. However he did not have as much improvement as he did with the InterStim. He eventually wished to proceed and was given the risks benefits alternatives in the office in the holding area with his mother present and his stepfather present in the holding area. Consent was signed by his mother. All questions were answered. Patient was identified in the holding area and brought to the operating room placed on the operating table in the prone position. IV antibiotics were started and gentle IV sedation was also started after timeout was performed. Patient was prepped with ChloraPrep. He was then prepped and draped in the standard sterile fashion exposing the feet for later stimulation. The fluoroscopy unit was draped to be sterile as well. AP images and lateral image were were taken throughout the course of the surgery. Landmarks were marked out by anatomy as well as fluoroscopy guidance. The initial her were made in the office were not suitable in the OR for some reason. We ended up using 12 cm above the tailbone. The needle was placed on the left side 2 cm lateral to the midline and was seen to be in good position fluoroscopically and the patient had excellent sensory sensation in the penile/perineal region. The wire was then placed and a knife was used to make a stab incision. The dilator was then placed over the wire. Once it was seen to be in good position fluoroscopically in the lateral position the lead was then placed and the leads were checked again from 0-3. He again had excellent sensory response at low stimulation in the penile region. Once the lead was checked and in optimal position, the battery pocket was then created in the right upper outer quadrant on the right side. 1% lidocaine was given throughout the case and each of the areas that were punctured either with the needle or for battery pocket creation. Bleeding was point coagulated and the tunneler was used to bring the wire through to the battery pocket site. It was attached to the battery after the lead was cleansed with a 4 x 4 gauze. The battery was checked and there was no impedance and was functioning normally. The battery site was closed with 3-0 Vicryl interrupted sutures followed by 4-0 Monocryl followed by Dermabond an OpSite dressing. Puncture site was also closed with 4-0 Monocryl in the Dermabond. Sponge and needle count were correct at the end of the case. Patient tolerated procedure well. He was transferred to the recovery room stable condition. Findings: Excellent sensory and motor response in the base of the penile region and with pratima Discharge Disposition: Same Day Admissions
--- NOTE | 2018-05-31 16:48 | RADIOLOGY REPORT ---
EXAMINATION: X-RAYS DURING STIMULATOR IMPLANT IN THE OR CLINICAL INFORMATION: Interstim stage 2. COMPARISON: None. TECHNIQUE: Multiple images were obtained in the OR during placement of a stimulator lead. FINDINGS: The images demonstrate progressive placement of a stimulator lead, with tip in the inferior right pelvis at the end of the study. Performing surgeon: Dr. Gonzalez. Fluoroscopy time: 0.1 minutes. Number of images: 4. IMPRESSION: 1. Multiple images obtained during placement of a stimulator lead in the OR. 2. Please refer to the operative notes for further details of the procedure.
== END ==
LOC: STS 02:44
DX: N39.41 Urge incontinence (principal); N32.81 Overactive bladder; R35.1 Nocturia; R33.9 Retention of urine, unspecified; G91.9 Hydrocephalus, unspecified; R56.9 Unspecified convulsions; Z86.718 Personal history of other venous thrombosis and embolism; Z79.01 Long term (current) use of anticoagulants
CPT/HCPCS: 76000; C1767; C1778; C1787; C1894; J0131; J0690; J2001; J2250